=== PATIENT | male | born 1960 | race Caucasian/White ===

== ENCOUNTER 2019-09-06 15:40 | Emergency (ER) | payer MEDICAID, SELFPAY | END 2019-09-06 22:40 | disposition still patient (30) | LOC: ER 11-24 13:20 | PROVIDERS: Emergency Provider Emergency Medicine; Family Provider Registered Nurse | DX: M54.5 Low back pain (principal) ==

== ENCOUNTER 2019-09-06 15:40 | Observation (INO) | payer MEDICAID, SELFPAY ==
[2019-09-06] VITALS (10 sets, daily range): BP systolic 129–162; BP diastolic 74–82; PULSE 70–76; RESP 16–20; TEMP 36.4; O2SAT 95–98; BMI 27.6
--- NOTE | 2019-09-06 15:46 | XR_ITS ---
WS: [id number] Portable AP upright chest, 09/06/2019 09/06/2019 Clinical Data: cough/congestion Comparison: Portable chest, 06/29/2019. Findings: No nodules, masses or effusions are seen. The heart is normal. The pulmonary vascularity is not increased. No pneumonia or pneumothorax is seen. The 2-lead cardiac pacemaker remains in good po sition. XR/XR chest 1V portable [id number] Impression: No acute cardiopulmonary disease is seen.
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
--- NOTE | 2019-09-06 15:47 | ECG_ITS ---
Measurements Intervals [place] Rate: 73 P: 124 ND: 221 QRS: -47 QRSD: 116 T: 5 QT: 381 QTc: 422 ELECTRONIC ATRIAL PACEMAKER LEFT ANTERIOR FASCICULAR BLOCK [QRS AXIS <= -45, QR IN I, RS IN II] Compared to ECG 06/29/2019 19:32:34 No significant changes Electronically Signed On 09-06-2019 17:49:57 FLORICULTURE PROFESSOR by Yahaira Kulkarni M.D. [id number] f
[2019-09-06 16:23] LABS: Basophils # 0.1 10^3/uL (0.0-0.1); Basophils % 1.5 %; Eosinophils # 0.2 10^3/uL (0.0-0.8); Eosinophils % 3.1 %; Hematocrit 43.6 % (42.0-52.0); Hemoglobin 14.4 g/dL (11.7-16.6); Lymphocytes # 2.1 10^3/uL (0.8-4.8); Lymphocytes % 30.7 %; Mean Corpuscular Hemoglobin 30.4 pg (28.0-34.0); Mean Corpuscular Volume 92.2 fL (80-94); Mean Platelet Volume 11.7 fL (7.4-10.4); Monocytes # 0.6 10^3/uL (0.2-0.9); Monocytes % 8.9 %; Neutrophils # 3.8 10^3/uL (1.8-7.7); Neutrophils % 55.7 %; Nucleated Red Blood Cells % 0 %; Platelet Count 112 10^3/cmm (130-400); Red Blood Count 4.73 10^6/uL (4.1-5.3); Red Cell Distribution Width 12.3 % (12.1-15.1); White Blood Count 6.7 10^3/uL (4.0-10.0)
[2019-09-06] MEDS: nitroglycerin 0.4 mg sublingual Tablet SUBLINGUAL (16:35)
[2019-09-06 16:37] LABS: Alanine Aminotransferase 57 U/L (0-41); Albumin Level 4.3 g/dL (3.5-5.2); Alkaline Phosphatase 178 IU/L (40-130); Aspartate Amino Transferase 65 U/L (0-40); Blood Urea Nitrogen 13 mg/dL (6-20); Carbon Dioxide 21 mmol/L (22-29); Chloride 103 mmol/L (98-107); Globulin 4.5 g/dL (1.3-4.6); Glomerular Filtration Rate 99.6 mL/min (90-130); Glucose 86 mg/dL (74-109); Sodium 136 mmol/L (136-145); Total Bilirubin 0.9 mg/dL (0.15-1.2); Total Protein 8.8 g/dL (6.6-8.7)
[2019-09-06 16:42] LABS: Troponin(5th) Baseline 6 ng/mL (0-15)
[2019-09-06] MEDS: morphine 4 mg/mL SDV 1 mL IVP ×2 (16:42→18:35)
--- NOTE | 2019-09-06 17:47 | ECG_ITS ---
Measurements Intervals [place] Rate: 72 P: 109 OK: 223 QRS: -48 QRSD: 106 T: -12 QT: 379 QTc: 416 ELECTRONIC ATRIAL PACEMAKER LEFT ANTERIOR FASCICULAR BLOCK [QRS AXIS <= -45, QR IN I, RS IN II] Compared to ECG 06/29/2019 19:32:34 No significant changes Electronically Signed On 09-06-2019 17:51:50 CAN VACUUM TESTER by Yahaira Kulkarni M.D. [email or web address] f
[2019-09-06 18:35] LABS: Troponin 5 2HR 7.19 ng/mL (0-15)
[2019-09-06] MEDS: nitroglycerin 1 gm/inch oint Pkt 1 INCH TOPICAL (18:36)
[2019-09-06 18:37] LABS: Troponin 5 2HR Delta 1.19 ABS# (0-10)
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
--- NOTE | 2019-09-06 21:47 | ECG_ITS ---
Measurements Intervals [place] Rate: 77 P: 110 WV: 206 QRS: -49 QRSD: 102 T: -5 QT: 368 QTc: 418 ELECTRONIC ATRIAL PACEMAKER LEFT ANTERIOR FASCICULAR BLOCK [QRS AXIS <= -45, QR IN I, RS IN II] POSSIBLE ANTERIOR MYOCARDIAL INFARCTION , OF INDETERMINATE AGE [30 ms Q WAVE IN V3/V4, OR R < 0.2 mV IN V4] Compared to ECG 09/06/2019 17:25:10 Myocardial infarct finding now present Electronically Signed On 09-07-2019 19:22:44 DIGITAL CONTENT MARKETING MANAGER by Ziyad Siegel M.D. [id number]
[2019-09-06 22:31] LABS: Troponin 5 6HR 7.78 ng/L (0-15)
[2019-09-06] MEDS: morphine 4 mg/mL SDV 1 mL 2 MG IV (22:46)
[2019-09-06 22:51] LABS: Troponin 5 6HR Delta 1.78 ng/L (0-12)
--- NOTE | 2019-09-06 23:00 | PC.NURSE ---
PATIENT REFUSED LOVENOX INJECTION, TEACHING PROVIDED TO PATIENT REGARDING THE IMPORTANCE OF INJECTION, PATIENT REFUSES POST TEACHING.
--- NOTE | 2019-09-06 23:43 | PC.NURSE ---
NOTIFIED HOSPITALIST REGARDING MEDICATIONS RECONCILED,
[2019-09-07] VITALS (12 sets, daily range): BP systolic 119–144; BP diastolic 60–82; PULSE 70–83; RESP 12–35; TEMP 36.6–36.9; O2SAT 97–98
[2019-09-07 00:03] LABS: Influenza A by IFA Negative (Negative); Influenza B by IFA Negative (Negative)
[2019-09-07] MEDS: ondansetron 2 mg/ML SDV 2 mL 4 MG IVP (01:22)
[2019-09-07 03:16] LABS: Nucleated Red Blood Cells % 0 %; Platelet Count 100 10^3/cmm (130-400)
[2019-09-07 03:19] LABS: Blood Urea Nitrogen 15 mg/dL (6-20); Calcium 9.4 mg/Dl (8.6-10.0); Carbon Dioxide 20 mmol/L (22-29); Chloride 104 mmol/L (98-107); Glucose 127 mg/dL (74-109); Sodium 136 mmol/L (136-145)
[2019-09-07 03:23] LABS: Basophils # 0.1 10^3/uL (0.0-0.1); Basophils % 1.3 %; Eosinophils # 0.3 10^3/uL (0.0-0.8); Hematocrit 38.5 % (42.0-52.0); Lymphocytes # 1.9 10^3/uL (0.8-4.8); Lymphocytes % 30.5 %; Mean Corpuscular HGB Conc 33.8 g/dL (30.0-36.0); Mean Corpuscular Hemoglobin 30.6 pg (28.0-34.0); Mean Corpuscular Volume 90.6 fL (80-94); Mean Platelet Volume 11.7 fL (7.4-10.4); Monocytes # 0.7 10^3/uL (0.2-0.9); Monocytes % 10.6 %; Neutrophils # 3.4 10^3/uL (1.8-7.7); Neutrophils % 53.4 %; Red Blood Count 4.25 10^6/uL (4.1-5.3); Red Cell Distribution Width 12.2 % (12.1-15.1); White Blood Count 6.3 10^3/uL (4.0-10.0)
[2019-09-07] MEDS: morphine 4 mg/mL SDV 1 mL 2 MG IV ×4 (03:40→21:37)
--- NOTE | 2019-09-07 06:58 | ECG_ITS ---
NAME OF STUDY: LEXISCAN SESTAMIBI STRESS TEST INDICATION: Chest Pain, LEXISCAN STRESS TEST ORDERING PHYSICIAN: Baron CLINICAL INFORMATION: Chest pain INTERPRETATION: 1. The patient was brought to the laboratory where Lexiscan was infused over 20 seconds. The resting blood pressure was 131/76. Maximum blood pressure was 131/76. The resting heart rate was 71 beats per minute. The maximum heart rate is 82 beats per minute. 2. The baseline electrocardiogram reveals sinus rhythm with a left axis deviation and nonspecific ST and T-wave changes. Unusual R-wave progression. 3. With Lexiscan infusion, there were no ST segment changes to suggest ischemia. 4. The patient experienced no symptoms or arrhythmias during the examination. CONCLUSION: 1. Unremarkable Lexiscan infusion. 2. Nuclear imaging to follow. Electronically Signed On 09-07-2019 9:14:11 SUMMER ASSOCIATE by Elvin Draper M.D. [id number]
--- NOTE | 2019-09-07 08:00 | PC.NURSE ---
pt taken via wheelchair to [facility].
[2019-09-07] MEDS: regadenoson 0.4 Mg/5 ml Syringe IVP (08:29)
--- NOTE | 2019-09-07 09:00 | PC.NURSE ---
pt returned to room from stress test via wheelchair. pt hooked up to monitors, call light wtihin reach, and table in reach. will continue to monitor.
[2019-09-07 09:16] LABS: Thyroid Stimulating Hormone 1.65 uIU/mL (0.27-4.20)
--- NOTE | 2019-09-07 09:30 | PC.NURSE ---
pt taken via wheelchair to 2nd part of stress test.
--- NOTE | 2019-09-07 10:04 | PC.NURSE ---
pt back from stress test, hooked up to monitor. call light within reach, table within reach. will continue to monitor.
[2019-09-07] MEDS: apixaban 5 mg Tablet PO (10:09)
[2019-09-07] MEDS: metoprolol tartrate 50 mg Tablet PO ×2 (10:09→17:35)
[2019-09-07] MEDS: prednisoLONE 1% Op Susp 5 mL Btl 1 DROP EYE-LEFT ×3 (10:09→21:30)
[2019-09-07] MEDS: ofloxacin 0.3% Op Soln 5 mL Btl 1 DROP EYE-LEFT ×3 (10:10→21:29)
--- NOTE | 2019-09-07 13:43 | PC.NURSE ---
pt off [place] walking around. pt educated on cardiac monitoring needing to be constant. pt verbalized an understanding and would let staff know next time he wanted to take a walk so he could be placed on portable monitor.
--- NOTE | 2019-09-07 13:52 | P.PN_ITS ---
Subjective Subjective: Interval history: Patient awake in the wheelchair at time of exam this morning. He reported some occasional neck pain at that time but denied any shortness of breath. Vitals/I&O/Wt Last Vital Signs Temp 98.4 F 09/07/19 11:34 Pulse 70 09/07/19 11:34 Resp 17 09/07/19 11:34 BP 137/78 09/07/19 11:34 Pulse Ox 98 09/07/19 11:34 09/06/19 09/07/19 09/07/19 22:59 06:59 14:59 Intake Total 720 / 720 Balance 720 / 720 Weight last 48 hrs Weight 40.642 kg Weight 61.462 kg Weight 79.832 kg Physical Exam Const: COMMON NORMALS: oriented x3 and alert GENERAL APPEARANCE: cooperative ORIENTATION/CONSCIOUSNESS: Yes awake, Yes oriented to person, Yes oriented to place and Yes oriented to time HENMT: COMMON NORMALS: normocephalic HEAD & SCALP: normocephalic Eye: COMMON NORMALS: PERRL PUPIL: Yes PERRL Neck/C-Spine: COMMON NORMALS: supple GENERAL: Yes normal visual inspection Resp: COMMON NORMALS: normal respiratory effort and clear to auscultation bilaterally EFFORT & INSPECTION: Yes able to speak in complete sentences AUSCULTATION: clear to auscultation bilaterally, no rhonchi and no wheezes Cardio: COMMON NORMALS: regular rate, regular rhythm and no murmurs RATE: regular rate RHYTHM: regular rhythm GI: COMMON NORMALS: non-tender INSPECTION: No abdominal distension Extremity: COMMON NORMALS: no clubbing, cyanosis or edema and no calf tenderness Neuro: COMMON NORMALS: oriented x3, CN's II-XII intact bilaterally, moves all extremities and no focal motor deficits SENSORIUM/ORIENTATION: Yes alert, Yes oriented to person, Yes oriented to place and Yes oriented to time SPEECH: speech normal Psych: COMMON NORMALS: mental status grossly normal and cooperative Skin: COMMON NORMALS: no rashes or lesions noted GENERAL SKIN EXAM: no rashes or lesions noted A&P Assessment and plan (1) Chest pain: Stress test ordered for further evaluation due to patient's presentation with chest pain from cardiology clinic and risk factors for coronary artery disease Positive stress test, discussed with patient's leader writer, Dr. Siegel, consultation placed. Holding Eliquis and plan for possible cardiac cath tomorrow Status: Acute Code(s): R07.9 - Chest pain, unspecified (2) Tobacco dependency: Strongly encourage cessation Status: Acute Code(s): F17.200 - Nicotine dependence, unspecified, uncomplicated (3) Chronic obstructive pulmonary disease: Without acute exacerbation Status: Acute Code(s): J44.9 - Chronic obstructive pulmonary disease, unspecified (4) A-fib: Currently in paced rhythm Eliquis 5 mg twice daily at home, holding for cardiac cath tomorrow Continue home metoprolol 12.5 mg twice daily Status: Acute Code(s): I48.91 - Unspecified atrial fibrillation (5) GERD (gastroesophageal reflux disease): Continue Protonix 40 mg daily Status: Acute Code(s): K21.9 - Gastro-esophageal reflux disease without esophagitis (6) Liver lesion: Pending further work-up. Will need continued outpatient oncology follow- up Status: Acute Code(s): K76.9 - Liver disease, unspecified (7) Depression: Stable Status: Acute Code(s): F32.9 - Major depressive disorder, single episode, unspecified (8) Chronic pain: Appears to be on chronic narcotics Status: Acute Code(s): G89.29 - Other chronic pain (9) Hyperlipidemia: Status: Acute Code(s): E78.5 - Hyperlipidemia, unspecified (10) Hep C w/o coma, chronic: Status: Acute Code(s): B18.2 - Chronic viral hepatitis C (11) Hypertension: Blood pressure appears to be controlled in the ER Status: Acute Code(s): I10 - Essential (primary) hypertension Attestations Medical Necessity Statement*: Patient requires continued hospitalization due to chest pain with abnormal stress test suggestive of ischemia. Coding Level of Care Code Acute Rod Pointer for [facility] Fwd Diagnoses Chest pain R07.9 Tobacco dependency F17.200 Chronic obstructive pulmonary disease J44.9 A-fib I48.91 GERD (gastroesophageal reflux disease) K21.9 Liver lesion K76.9 Depression F32.9 Chronic pain G89.29 Hyperlipidemia E78.5 Hep C w/o coma, chronic B18.2 Hypertension I10
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
--- NOTE | 2019-09-07 19:33 | PC.NURSE ---
ROUNDING DONE WITH DR ALLEN THIS EVENING INFORMED PATIENT HE WAS READY FOR DISCHARGE. PATIENT IS UNABLE TO OBTAIN A RIDE OR DRIVE SELF AFTER DARK. DR ALLEN INFORMED PATIENT THAT HE WOULD BE DISCHARGED TO HOME IN THE AM. PATIENT IS AGREEABLE AT THIS TIME.
--- NOTE | 2019-09-07 19:55 | PC.NURSE ---
Lying supine in bed watching television and talking on phone. States, Dr. Siegel was going to send me home but I don't have a ride........I'll be going home in the morning...I'd really like to take this monitor off. This nurse explained to patient that while he is a patient on our floor that we would appreciate it if he wore the monitor over night and that staff would also like to know where he might be walking too. Patient voices understanding. Up to shower. Will monitor.
--- NOTE | 2019-09-07 19:57 | NMCV_ITS ---
NM MIBI/MIBI Stress/Rest [id number] Say Cardenas Age: 59 Gender: M : 1960 Exam Date: 09/07/2019 06:38 Ordering Phys: Harmeet Colunga MD Technologist: DOMENIC Moreno Exam Location: [facility] Indications: Chest Pain STRESS TEST Please see separate stress test report in [facility] for full findings IMAGE PROTOCOL Lexiscan Radiopharmaceutical Dose (mCi) Administration Site Administered by Rest: Tc-99m 10.2 IV DOMENIC Moreno Sestamibi Stress:Tc-99m 32.1 IV DOMENIC Moreno Sestamibi Rest: 07-Sep-2019 60 Discovery 630 Stress: 07-Sep-2019 60 Discovery 630 0.4mg Lexiscan. Images obtained in supine and prone position. SPECT RESULTS Technical Quality: Good Raw Data Analysis: Normal Image Corrections: No attenuation or motion correction applied Summed Stress Score: 0 Summed Rest Score: 0 Summed Difference Score: 0 PERFUSION FINDINGS Medium-size area of moderate reversibility noted in basal to mid inferior wall suggestive of ischemia in RCA territory. FUNCTIONAL RESULTS (calculated via Gated SPECT) Stress Image LV EF (%): 71 Stress EDV (mL):103 TID: 1.03 Stress ESV (mL):30 Rest Image LV EF (%): 71 FUNCTIONAL FINDINGS: There is normal left ventricular systolic function. IMPRESSIONS Medium-size area of moderate ischemia noted in basal to mid inferior wall suggestive of possible lesion in RCA territory. EKG segment will be documented separately. This study is positive for ischemia. Ziyad Siegel MD (Electronically Signed) Final Date: 07 September 2019 12:38 S
[2019-09-07] MEDS: sertraline 50 mg Tablet PO (21:29)
[2019-09-08 02:05] VITALS: RESP 16
[2019-09-08] MEDS: morphine 4 mg/mL SDV 1 mL 2 MG IV (02:05)
[2019-09-08 04:00] VITALS: BP 140/80; PULSE 78; RESP 18; TEMP 36.7
--- NOTE | 2019-09-08 04:30 | PC.NURSE ---
This nurse was informed by lab personnel that patient was refusing to have labs drawn at this time due to patient going home this morning. Informed lab personnel that patient had the right to refuse and that I would document as such. Lab personnel voices understanding. Will monitor.
[2019-09-08 08:00] VITALS: BP 125/77; PULSE 69; RESP 20; TEMP 36.6; O2SAT 97
--- NOTE | 2019-09-08 08:13 | P.DS_ITS ---
Discharge Providers Date of Admission: 09/06/19 21:15 Date of Discharge: 09/08/19 Attending Provider at Admission: Harmeet Colunga MD Attending Provider at Discharge: Magda Barth MD Primary Care Provider: Ziyad Siegel Diagnoses at Discharge Discharge Diagnosis (1) Chest pain: Status: Acute Problem details: Resolved, atypical chest pain. Had abnormal stress test which was reported to be false negative by cardiology. Patient had recent cardiac cath which showed normal coronary arteries just a few months ago, cleared for discharge by cardiology. (2) Tobacco dependency: Status: Acute Problem details: Strongly encourage cessation (3) Chronic obstructive pulmonary disease: Status: Acute Problem details: Without acute exacerbation (4) A-fib: Status: Acute Problem details: Continue on Eliquis 5 mg twice daily, continue metoprolol 12.5 mg twice daily (5) GERD (gastroesophageal reflux disease): Status: Acute Problem details: Continue Protonix 40 mg daily (6) Liver lesion: Status: Acute Problem details: Continue with outpatient follow-up as previously scheduled (7) Depression: Status: Acute Problem details: Continue on sertraline daily (8) Chronic pain: Status: Acute (9) Hyperlipidemia: Status: Acute (10) Hep C w/o coma, chronic: Status: Acute (11) Hypertension: Status: Acute Problem details: Continue lisinopril 40 mg daily along with metoprolol Reason for Visit Reason for Visit: Reason For Visit: chest pain Hospital Course Hospital Course: Patient was seen and evaluated in the emergency department after being sent from cardiology office due to concern for chest pain. Patient was admitted for serial troponin and EKG and further cardiac evaluation. Patient had negative EKG and troponin and was kept n.p.o. for stress test. Stress test showed some changes with concern for positive result in the territory of the RCA. Cardiology was consulted, Dr. Siegel, patient was cleared for discharge due to recently having normal cardiac catheterization with normal coronary arteries. On date of discharge patient denied any chest pain he did note some neck pain but denied any other concerns. Discussed with him plan for discharge and he denied any concerns Discharge Summary: Hospital course as above. On date of discharge patient denied any chest pain, did note some musculoskeletal pain in his neck. Discussed with him plan for discharge to home and he verbalized understanding and agreed with plan. Physical Exam Const: COMMON NORMALS: oriented x3 and alert GENERAL APPEARANCE: cooperative ORIENTATION/CONSCIOUSNESS: Yes awake, Yes oriented to person, Yes oriented to place and Yes oriented to time HENMT: COMMON NORMALS: normocephalic HEAD & SCALP: normocephalic Eye: COMMON NORMALS: PERRL PUPIL: Yes PERRL Neck/C-Spine: COMMON NORMALS: supple GENERAL: Yes normal visual inspection OTHER: Tenderness to palpation in the cervical paraspinal muscles Resp: COMMON NORMALS: normal respiratory effort and clear to auscultation bilaterally EFFORT & INSPECTION: Yes able to speak in complete sentences AUSCULTATION: clear to auscultation bilaterally, no rhonchi and no wheezes Cardio: COMMON NORMALS: regular rate, regular rhythm and no murmurs RATE: regular rate RHYTHM: regular rhythm GI: COMMON NORMALS: non-tender INSPECTION: No abdominal distension AUSCULTATION: Yes normoactive bowel sounds Extremity: COMMON NORMALS: no clubbing, cyanosis or edema and no calf tenderness Neuro: COMMON NORMALS: oriented x3, CN's II-XII intact bilaterally, moves all extremities and no focal motor deficits SENSORIUM/ORIENTATION: Yes alert, Yes oriented to person, Yes oriented to place and Yes oriented to time SPEECH: speech normal Psych: COMMON NORMALS: mental status grossly normal and cooperative Skin: COMMON NORMALS: no rashes or lesions noted GENERAL SKIN EXAM: no rashes or lesions noted Discharge Data Data Completed and Pending: Completed Studies During Hospitalization Category Date Time Status Sestamibi Stress Test Request Routi ne Exams 09/07/19 06:58 Completed XR chest 1V ruy ble [id number] Urgent Exams 09/06/19 15:46 Completed NM elyse perf SPECT r&s* [id number] Routin e Nuc Med 09/07/19 19:57 Completed Pending at discharge Category Date Time Status Sestamibi Stress Test Request Routi ne Exams 09/06/19 19:57 Stop Req Complete Blood Co unt w/Auto AM LABS Lab 09/09/19 04:00 Ordered Labs from last 24 hours 09/06/19 21:55 TSH 1.65 Vitals: Last Vital Signs Temp 97.9 F 09/08/19 08:00 Pulse 69 09/08/19 08:00 Resp 20 H 09/08/19 08:00 BP 125/77 09/08/19 08:00 Pulse Ox 97 09/08/19 08:00 Discharge Plan Discharge Patient Disposition: Home, Self-Care Condition: Stable Prescriptions: New tizanidine 4 mg capsule 4 mg PO Q8H PRN (Reason: muscle spasticity) 2 Days Qty: 6 RF: 0 Continued metoprolol tartrate 25 mg tablet 12.5 mg PO BID RF: 0 sertraline 50 mg tablet 50 mg PO Q24H RF: 0 nitroglycerin [Nitrostat] 0.4 mg tablet, sublingual 0.4 mg SUBLINGUAL Q5M PRN (Reason: Chest Pain) RF: 0 aspirin [Aspirin Low Dose] 81 mg tablet,delayed release (DR/EC) 81 mg PO ONCE RF: 0 pantoprazole [Protonix] 40 mg tablet,delayed release (DR/EC) 40 mg PO ONCE RF: 0 lisinopril 40 mg tablet 40 mg PO ONCE RF: 0 Eliquis 5 mg tablet 5 mg PO BID RF: 0 prednisolone acetate 1 % drops,suspension 1 drop ophthalmic (eye) QID RF: 0 ofloxacin 0.3 % drops 1 drop ophthalmic (eye) QID RF: 0 alprazolam 0.5 mg tablet 0.5 mg PO TID RF: 0 Discharge Orders: Discharge Order (Routine); Ordered 09/08/19 Ordered By: Magda Barth Referrals: Ziyad Siegel MD [Primary Care Provider] - Thea Mckeon FNP [Family Provider] - Discharge Diet: Cardiac Discharge Activity: Increase activity as tolerated Activity Restrictions/Additional Instructions: Follow-up with your primary care provider in 3 to 5 days Follow-up with cardiology, Dr. Siegel as directed Follow-up with oncology as previously scheduled for further evaluation of liver lesion Discharge Attestations Time Spent in Discharge Care*: greater than 30 min Quality Metrics Clinical Quality Measures During this hospital stay, did patient experience: None Coding Level of Care Code Acute Events Director for [facility] Fwd Diagnoses Chest pain R07.9 Tobacco dependency F17.200 Chronic obstructive pulmonary disease J44.9 A-fib I48.91 GERD (gastroesophageal reflux disease) K21.9 Liver lesion K76.9 Depression F32.9 Chronic pain G89.29 Hyperlipidemia E78.5 Hep C w/o coma, chronic B18.2 Hypertension I10
[2019-09-08] MEDS: metoprolol tartrate 50 mg Tablet PO (08:42)
[2019-09-08] MEDS: prednisoLONE 1% Op Susp 5 mL Btl 1 DROP EYE-LEFT (08:43)
[2019-09-08] MEDS: ofloxacin 0.3% Op Soln 5 mL Btl 1 DROP EYE-LEFT (08:43)
[2019-09-08 09:16] VITALS: BP 125/77; PULSE 71; RESP 20; TEMP 36.6; O2SAT 97
== END 2019-09-08 09:47 | disposition home or self-care (01) ==
LOC: ER 19:54 → CSU 21:16
PROVIDERS: Physician Assistant; Admitting Provider Internal Medicine; Emergency Provider Emergency Medicine; Family Provider Registered Nurse; PCP Internal Medicine Cardiovascular Disease; Visit Provider Family Medicine
DX: R07.89 Other chest pain (principal); I10 Essential (primary) hypertension; F17.210 Nicotine dependence, cigarettes, uncomplicated; J44.9 Chronic obstructive pulmonary disease, unspecified; I48.91 Unspecified atrial fibrillation; K21.9 Gastro-esophageal reflux disease without esophagitis; K76.9 Liver disease, unspecified; F32.9 Major depressive disorder, single episode, unspecified; G89.29 Other chronic pain; E78.5 Hyperlipidemia, unspecified; B18.2 Chronic viral hepatitis C; Z79.82 Long term (current) use of aspirin; Z79.52 Long term (current) use of systemic steroids; Z82.49 Family history of ischemic heart disease and other diseases of the circulatory system; Z82.3 Family history of stroke; Z95.0 Presence of cardiac pacemaker
CPT/HCPCS: 36415; 71045; 78452; 80048; 80053; 84443; 84484; 85025; 87804; 93005; 93017; 96374; 96376; 99283; 99285; A9500; G0378; J2270; J2405; J2785

== ENCOUNTER 2019-09-21 13:00 | Outpatient (CLI) | payer MEDICAID, SELFPAY ==
--- NOTE | 2019-10-08 12:57 | ONC FU_ITS ---
Dr. Armas Patient Follow-Up Note Patient: Say Cardenas Unit #: [id number]: 1960 Dicatated By: Fredi Armas M.D.Date of Visit:Sep 21, 2019 Onc Med Follow-up/Prog Note Chief Complaint: Liver mass. History of Present Illness: This is a 59 year-old man with CT evidence of a left lateral lobe hepatic mass suspicious for early hepatocellular carcinoma or a solitary metastatic lesion. 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 He has had chronic pancreatitis. On 05/02/2019 he was admitted to the hospital after presenting to the emergency room with abdominal pain and vomiting. His initial CT abdomen/pelvis showed multiple dilated loops of proximal small bowel with scattered air-fluid levels, concerning for early small bowel obstruction. There were findings of cirrhosis and mild splenomegaly. His symptoms improved with conservative management. His repeat CT abdomen/pelvis on 05/06/2019 showed resolution of the small bowel distention. The pancreas appeared normal. That study, however, did show development of a left hepatic lobe lateral segment space-occupying lesion which was new from a prior study in October 2017. It measured approximately 1.5 cm. His laboratory studies during that time included an AFP level which was elevated at 26.9 ng/mL. His serum lipase was mildly elevated at 131/60 U/L. I had seen him initially on 05/18/2019. He was not able to have the hepatic lesion evaluated by MRI due to his having a pacemaker. We discussed the possibility of referral to a tertiary facility for further evaluation versus continuing follow-up here with close observation. Given his multiple underlying medical illnesses, he opted for the latter. His repeat CT abdomen/pelvis on 06/29/2019 showed hypodense mass in the lateral segment of the left lobe of the liver measuring 2.3 x 1.7 x 2.8 cm. It did not appear significantly changed from the prior CT scan. His other medical illnesses include hypertension, hyperlipidemia, GERD, and COPD. He has a history of smoking 1 pack of cigarettes daily for 40 years. He has a history of heavy alcohol use. He had most recently quit again in April 2019. He is seen for a follow-up visit. He was recently in the hospital again, this time for chest pain. His cardiac evaluation was apparently unrevealing. He has not had any further CT scans since the study in June. He continues to complain of pain across his lower chest and upper abdomen. The pain is worse when he is lying down. He says he does not have much energy and that he is mostly just laying around . His ECOG score is 3. His appetite is just so-so. He has gained weight. He does not have fever or night sweats. He has shortness of breath. He complains of having constant cough. It is nonproductive. He has had no hemoptysis. He has not been having nausea or acid reflux symptoms. His bowels lately have been okay. He has frequent urination. He complains that his hands hurt a lot. He also has back pain. He is having headache constantly. He has numbness in his hands. Medications: ALPRAZolam 1 (0.5 mg) Tablet Oral t.i.d. PRN, amLODIPine Besylate 1 (5 mg) Tablet Oral daily, Aspirin 1 (81 mg) Tablet Oral daily, Eliquis 1 Tablet (of 5 mg) Oral b.i.d., Lisinopril 1 (40 mg) Tablet Oral daily, Metoprolol Tartrate 0.5 (25 mg) Tablet Oral b.i.d., Nitroglycerin 1 (0.4 mg) Tablet, sublingual Sublingual PRN, Ofloxacin 1 drop(s) (of 0.3 %) Solution Ophthalmic 6x/d, prednisoLONE Acetate 1 drop(s) (of 1 %) Suspension Ophthalmic four times a day, Protonix 1 (40 mg) Tablet, enteric coated Oral daily, Sertraline HCl 1 (50 mg) Tablet Oral daily, tiZANidine HCl 1 Tablet (of 4 mg) Oral q for 8 hours PRN Allergies: Relistor Review of Systems: Constitutional - He has very poor energy. He has mostly just been laying around . His appetite is fair and weight is so-so. He has gained weight. He has no fever or night sweats. ECOG score is 3, ENMT - He has sinus congestion/drainage. No mouth sores. No sore throat or difficulty swallowing, Hematologic/Lymphatic - He bruises easily, Respiratory - He has shortness of breath. He has had constant cough. It is nonproductive. No pleuritic pain or hemoptysis, Cardiovascular - He has been having pain across his lower chest and upper abdomen. No palpitations, Gastrointestinal - No nausea or vomiting. No heartburn or acid reflux. No diarrhea or constipation. No blood in the stool or black stools, Genitourinary (M) - No dysuria or hematuria. He has urinary frequency. No urgency or incontinence, Musculoskeletal - His hands hurt a lot. He also has back pain, Integumentary - No skin complications, Neurologic - He has constant headaches. No dizziness. He has numbness in his hands, Psychiatric - He has anxieyt and depression. He does not sleep well at night. Vital Signs: Performed on Sep 21, 2019 13:18 Height - 67.00 in Weight - 177 lbs (HIGH) BSA - 1.92 sq.m BMI - 27.72 Temperature - 98.6 F Pulse - 75 /min Respiration - 16 /min BP - 138/86 mm(hg) O2 Sat - 99 % Pain - 6 Physical Examination: Constitutional - He appears generally weak and chronically ill, Eyes - Sclerae nonicteric. Conjunctivae clear, ENMT - There is a benign appearing polypoid lesion in the right buccal mucosa just inside the mouth. There are no other lesions noted in the oral cavity, Hematologic/Lymphatic - No cervical, clavicular, or axillary adenopathy, Respiratory - Lungs are clear with some decrease in air movement bilaterally, Cardiovascular - Heart rhythm is regular. There is a II/ systolic murmur. There is no gallop or rub noted, Abdomen - Mildly distended. There is no significant abdominal tenderness. Liver is not enlarged. Spleen is not palpable. There is no abdominal mass or ascites noted and there is no inguinal adenopathy, Extremities - No edema, Neurologic - No focal neurologic deficits noted. Lab/Imaging: Impression: 1. Patient with CT evidence of left lateral hepatic lobe lesion suspicious for early hepatocellular carcinoma or a solitary metastatic lesion. 2. He was having multiple GI complaints including abdominal pain, nausea, and diarrhea, all of which were clearly unrelated. 3. He has known liver cirrhosis, probably alcohol related. 4. He was treated for hepatitis C in 2017. 5. He has history of chronic pancreatitis. His other medical illnesses include: 6. Hypertension. 7. GERD. 8. COPD. 9. 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 10. 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 He has been followed on close observation for the hepatic lesion, as he has not been able to be evaluated with MRI due to the pacemaker. During follow-up he has continued to have significant pain. The specific underlying cause for that is uncertain. As previously noted, it is clearly not related to the hepatic lesion. The results of his current laboratory studies are still pending. Plan: He will be scheduled for a repeat CT abdomen/pelvis, which will be 3- month interval study. He will then have further evaluation as indicated. Signed By: Fredi Armas M.D. <<Signature on File>>
== END 2019-09-21 13:01 | disposition home or self-care (01) ==
LOC: STFRANCIS 09-22 08:50
PROVIDERS: Family Provider Registered Nurse; PCP Internal Medicine Cardiovascular Disease; Visit Provider Internal Medicine Medical Oncology
DX: R93.2 Abnormal findings on diagnostic imaging of liver and biliary tract (principal); K76.9 Liver disease, unspecified; K70.30 Alcoholic cirrhosis of liver without ascites; K86.0 Alcohol-induced chronic pancreatitis; I10 Essential (primary) hypertension; E78.5 Hyperlipidemia, unspecified; K21.9 Gastro-esophageal reflux disease without esophagitis; J44.9 Chronic obstructive pulmonary disease, unspecified; F17.210 Nicotine dependence, cigarettes, uncomplicated; F10.21 Alcohol dependence, in remission; Z79.82 Long term (current) use of aspirin; Z95.0 Presence of cardiac pacemaker; Z86.19 Personal history of other infectious and parasitic diseases
CPT/HCPCS: 99214

== ENCOUNTER 2019-09-28 10:58 | Outpatient (CLI) | payer MEDICAID, SELFPAY ==
--- NOTE | 2019-09-28 11:02 | CT_ITS ---
WS: [id number] CT scan of the abdomen and pelvis with IV contrast. Additional two-dimensional coronal and sagittal r econstruction was performed. 09/28/2019 Clinical Data: HEPATIC MASS Comparison: CT abdomen and pelvis, 06/29/2019. DLP: 659.[address] scans at [facility] use at least one of these dose optimization techniques: automat ed exposure control; mA and/or kV adjustment per patient size (includes targeted exams where dose is matched to clinical indication); or iterative reconstruction. Findings: The lower lungs show no nodules, masses or effusions. The indeterminate lesion in the left lobe of th e liver measures approximately 1.64 x 2.62 x 3.41 cm and has not changed. It shows peripheral enhance ment and may represent an hemangioma or focal fat infiltration. It is less likely to represent a live r abscess, metastatic lesion or primary liver tumor. The remainder of the liver is unremarkable. The spleen, adrenal glands and pancreas are normal. The gallbladder is absent with clips in the gallblad todd fossa. The kidneys show equal bilateral contrast excretion with no cyst or masses. The abdominal aorta is normal in size. No appendicitis or diverticulitis is seen. Oral contrast is in the stomach, small bowel and colon, an d there is no bowel dilatation. No abscess, adenopathy, ascites, mass, obstruction or free air is see n. The bladder is unremarkable. The prostate is enlarged. There is a small fat-containing right ingui nal hernia. The bones of the lower thorax, lumbar spine, pelvis, and hips show minimal degenerative c hanges of the lower thoracic and lumbar vertebral bodies.. CT/CT abdomen pelvis w con* [id number] Impression: 1. Indeterminate lesion of left lobe of the liver. Unchanged 2. No acute intra-abdominal or pelvic abnormalities are seen.
[2019-09-28] MEDS: iohexol 300 mg/mL 50 mL Btl PO (12:07)
[2019-09-28] MEDS: iohexol 300 mg/mL 100 mL Btl IV (13:23)
== END 2019-09-28 10:59 | disposition home or self-care (01) ==
LOC: CT 10:59
PROVIDERS: Family Provider Registered Nurse; Visit Provider Internal Medicine Medical Oncology
DX: K76.9 Liver disease, unspecified (principal); R16.0 Hepatomegaly, not elsewhere classified
CPT/HCPCS: 74177

== ENCOUNTER → 2019-11-10 13:54 | Outpatient (BNVA) | payer MEDICAID, SELFPAY | PROVIDERS: Family Provider Registered Nurse; Visit Provider Registered Nurse | DX: K85.90 Acute pancreatitis without necrosis or infection, unspecified (principal) | CPT/HCPCS: 80053; 85025 ==

== ENCOUNTER 2020-01-18 11:38 | Outpatient (CLI) | payer MEDICAID, SELFPAY ==
--- NOTE | 2020-01-21 06:55 | ONC FU_ITS ---
Dr. Armas Patient Follow-Up Note Patient: Say Cardenas Unit #: [id number]: 1960 Dicatated By: Fredi Armas M.D.Date of Visit:January 18, 2020 Onc Med Follow-up/Prog Note Chief Complaint: Liver mass. History of Present Illness: This is a 59 year-old man with CT evidence of a left lateral lobe hepatic mass suspicious for early hepatocellular carcinoma or a solitary metastatic lesion. 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 He has had chronic pancreatitis. On 05/02/2019 he was admitted to the hospital after presenting to the emergency room with abdominal pain and vomiting. His initial CT abdomen/pelvis showed multiple dilated loops of proximal small bowel with scattered air-fluid levels, concerning for early small bowel obstruction. There were findings of cirrhosis and mild splenomegaly. His symptoms improved with conservative management. His repeat CT abdomen/pelvis on 05/06/2019 showed resolution of the small bowel distention. The pancreas appeared normal. That study, however, did show development of a left hepatic lobe lateral segment space-occupying lesion which was new from a prior study in October 2017. It measured approximately 1.5 cm. His laboratory studies during that time included an AFP level which was elevated at 26.9 ng/mL. His serum lipase was mildly elevated at 131/60 U/L. I had seen him initially on 05/18/2019. He was not able to have the hepatic lesion evaluated by MRI due to his having a pacemaker. We discussed the possibility of referral to a tertiary facility for further evaluation versus continuing follow-up here with close observation. Given his multiple underlying medical illnesses, he opted for the latter. His repeat CT abdomen/pelvis on 06/29/2019 showed hypodense mass in the lateral segment of the left lobe of the liver measuring 2.3 x 1.7 x 2.8 cm. It did not appear significantly changed from the prior CT scan. His other medical illnesses include hypertension, hyperlipidemia, GERD, and COPD. He has a history of smoking 1 pack of cigarettes daily for 40 years. He has a history of heavy alcohol use. He had most recently quit again in April 2019. INTERIM HISTORY: Repeat CT abdomen/pelvis on 09/28/2019 showed indeterminate lesion in the left lobe of the liver measuring 1.64 x 2.62 x 3.41 cm, unchanged from the previous study. It did appear to show peripheral enhancement, consistent with hemangioma or focal fat infiltration. Liver abscess, metastatic lesion, or primary liver tumor were felt to be less likely. There were no other acute findings and no other changes noted. He continued observation/symptomatic management. He is seen for a follow-up visit. He says he has been feeling better generally. He is still getting pain in his upper abdomen off and on. He has no other associated GI symptoms. He says his energy is not good. He is out of breath and wore out after 15 minutes of activity. He is doing just very light work. ECOG score is 2. He has normal appetite, and his weight is stable. He has no fever or night sweats. He has nonproductive cough. He is still smoking 1 pack of cigarettes daily. He does report having chest pain with more strenuous activity. Bowel and bladder function have been normal. He has pain in his lower back, which tends to be activity related. He also has been having pain and numbness in his right hand and arm. He has headache occasionally, and he sometimes has dizziness. He has no other focal neurologic symptoms. Medications: Aspirin 1 (81 mg) Tablet Oral daily, Eliquis 1 Tablet (of 5 mg) Oral b.i.d., Lisinopril 1 (40 mg) Tablet Oral daily, Metoprolol Tartrate 0.5 (25 mg) Tablet Oral b.i.d., Nitroglycerin 1 (0.4 mg) Tablet, sublingual Sublingual PRN, Ofloxacin 1 drop(s) (of 0.3 %) Solution Ophthalmic 6x/d, Protonix 1 (40 mg) Tablet, enteric coated Oral daily, Sertraline HCl 1 (50 mg) Tablet Oral daily, tiZANidine HCl 1 Tablet (of 4 mg) Oral q for 8 hours PRN Allergies: Relistor Review of Systems: Constitutional - His energy level is low. He is able to do a little bit of light work, but he tires easily. His appetite is good and weight is stable. No fever, chills, hot flashes, or night sweats. ECOG score is 2, ENMT - No sinus congestion/drainage. No mouth sores. No sore throat or difficulty swallowing, Hematologic/Lymphatic - No abnormal bruising or bleeding, Respiratory - He gets short of breath with activity. He has a chronic dry smokers cough. No pleuritic pain or hemoptysis, Cardiovascular - He has chest pain occasionally with more strenuous activity. No palpitations, Gastrointestinal - No nausea or vomiting. His heartburn is well controlled with Protonix. No diarrhea or constipation. No blood in the stool or black stools. He still has pain off and on in the upper abdomen, Genitourinary (M) - No dysuria or hematuria. No urinary frequency. No urgency or incontinence, Musculoskeletal - He has some arthritic pain in his right hand/wrist, Integumentary - No skin complications, Neurologic - No headache or dizziness. He has some numbness and tingling in his right hand, Psychiatric - He has anxiety, but he is currently not taking anything for it. No depression. No insomnia. Vital Signs: Performed on January 18, 2020 09:00 Height - 67.00 in Weight - 175 lbs (LOW) BSA - 1.91 sq.m BMI - 27.41 Temperature - 99.0 F (HIGH) Pulse - 76 /min Respiration - 18 /min BP - 140/80 mm(hg) O2 Sat - 98 % Pain - 4 Physical Examination: Constitutional - He does not appear acutely ill, Eyes - Sclerae nonicteric. Conjunctivae clear, ENMT - There is a benign appearing polypoid lesion in the right buccal mucosa just inside the mouth. There are no other lesions noted in the oral cavity, Hematologic/Lymphatic - No cervical, clavicular, or axillary adenopathy, Respiratory - Lungs are clear with some decrease in air movement bilaterally, Cardiovascular - Heart rhythm is regular. There is a II/ systolic murmur. There is no gallop or rub noted, Abdomen - Mildly distended and tympanic. There is mild tenderness in the left upper quadrant. Liver is not enlarged. Spleen is not palpable. There is no abdominal mass or ascites noted and there is no inguinal adenopathy, Extremities - No edema, Neurologic - No focal neurologic deficits noted. Lab/Imaging: Test performed on Sep 21, 2019 13:08 Glucose 158 mg/dL BUN 11 mg/dL Creatinine 0.77 mg/dL Cr Clearance (Est) 120.20 mL/min Sodium 137 mmol/L Potassium 3.9 mmol/L Chloride 103 mmol/L CO2 19 mmol/L Calcium 9.3 mg/dL Protein, Total 8.7 g/dL Albumin 4.0 g/dL Bilirubin, Total 0.7 mg/dL Alkaline Phosphatase 170 IU/L AST (SGOT) 61 IU/L ALT (SGPT) 48 IU/L WBC 7.0 10^9/L RBC 5.02 10^12/L HGB 15.4 g/dL HCT 44.8 % MCV 89.2 fl MCH 30.7 pg MCHC 34.4 g/dL RDW 12.8 % Platelet Count 87 10^9/L MPV 11.0 fL Neutrophils (Gran) 4.46 10^9/L Lymphocytes 1.87 10^9/L Monocytes 0.47 10^9/L Eosinophils 0.15 10^9/L Basophils 0.08 10^9/L Manual Lymphocytes 27 % Manual Monocytes 7 % Manual Eosinophils 2 % Manual Basophils 1 % AFP 25 ng/mL Impression: 1. Patient with CT evidence of left lateral hepatic lobe lesion, initially felt to be suspicious for early hepatocellular carcinoma or a solitary metastatic lesion. 2. He was having multiple GI complaints including abdominal pain, nausea, and diarrhea, all of which were clearly unrelated. 3. He has known liver cirrhosis, probably alcohol related. 4. He was treated for hepatitis C in 2017. 5. He has history of chronic pancreatitis. His other medical illnesses include: 6. Hypertension. 7. GERD. 8. COPD. 9. 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 10. 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 He has been followed on close observation for the hepatic lesion, as he was not able to be evaluated with MRI due to his pacemaker. During follow-up he continued to have abdominal pain, though a specific underlying cause for that was not determined. It was clearly not related to the hepatic lesion. As of his follow-up in September 2019, the lesion appeared stable by CT scan. Since then there has been some gradual improvement in his symptoms, though he continues to have some abdominal pain, and he also has very limited activity tolerance. Plan: He will be scheduled for a followup visit with repeat CT abdomen/pelvis in March, which will be 6- month interval study. Signed By: Fredi Armas M.D. <<Signature on File>>
== END 2020-01-18 11:39 | disposition home or self-care (01) ==
LOC: ONCMED 11:38
PROVIDERS: PCP Registered Nurse; Visit Provider Internal Medicine Medical Oncology
DX: R93.2 Abnormal findings on diagnostic imaging of liver and biliary tract (principal); K74.60 Unspecified cirrhosis of liver; R10.9 Unspecified abdominal pain; K21.9 Gastro-esophageal reflux disease without esophagitis; J44.9 Chronic obstructive pulmonary disease, unspecified; Z95.0 Presence of cardiac pacemaker; Z86.19 Personal history of other infectious and parasitic diseases; Z87.19 Personal history of other diseases of the digestive system; Z94.7 Corneal transplant status; Z87.891 Personal history of nicotine dependence; F10.21 Alcohol dependence, in remission
CPT/HCPCS: G0463

== ENCOUNTER 2020-03-15 11:49 | Outpatient (CLI) | payer MEDICAID, SELFPAY ==
--- NOTE | 2020-03-15 11:55 | CT_ITS ---
WS: [id number] CT scan of the abdomen and pelvis with IV contrast. Additional two-dimensional coronal and sagittal r econstruction was performed. 03/15/2020 Clinical Data: LIVER MASS Comparison: CT abdomen and pelvis, 09/28/2019 DLP: 1174.[address] scans at [facility] use at least one of these dose optimization techniques: automat ed exposure control; mA and/or kV adjustment per patient size (includes targeted exams where dose is matched to clinical indication); or iterative reconstruction. Findings: A mass in the left lobe of the liver has enlarged and now measures 3.46 x 4.04 cm x 4.91 cm. Again th e liver shows a slightly irregular surface and enlargement both of which can be seen with cirrhosis o f the liver. The lower lungs show no nodules, masses or effusions. Pacemaker wires are seen in the right ventricle . The spleen, adrenal glands and pancreas are normal. The gallbladder is absent with clips in the gall bladder fossa. The kidneys show equal bilateral contrast excretion with no cyst or masses. The abdominal aorta is normal in size. No appendicitis or diverticulitis is seen. There are sigmoid diverticula. No abscess, adenopathy, asc ites, mass, obstruction or free air is seen. The bladder is unremarkable. No inguinal hernia is seen. The bones of the lower thorax, lumbar spine, pelvis, and hips are normal. CT/CT abdomen pelvis w con* [id number] Impression: 1. Enlargement of the mass in the left lobe of the liver and further workup is recommended including liver MRI, or PET/CT. 2. No other changes of the abdomen and pelvis are seen compared to the previous study.
[2020-03-15] MEDS: iohexol 300 mg/mL 100 mL Btl IV (12:10)
== END 2020-03-15 11:50 | disposition home or self-care (01) ==
LOC: RADWPI 11:51
PROVIDERS: PCP Registered Nurse; Visit Provider Internal Medicine Medical Oncology
DX: R93.2 Abnormal findings on diagnostic imaging of liver and biliary tract (principal)
CPT/HCPCS: 74177; Q9967

== ENCOUNTER 2020-03-21 09:53 | Outpatient (CLI) | payer MEDICAID, SELFPAY ==
--- NOTE | 2020-03-22 07:19 | ONC FU_ITS ---
Dr. Armas Patient Follow-Up Note Patient: Say Cardenas Unit #: [id number]: [id number] Dicatated By: Fredi Armas M.D.Date of Visit:Mar 21, 2020 Onc Med Follow-up/Prog Note Chief Complaint: Liver mass. History of Present Illness: This is a 59 year-old man with CT evidence of a left lateral lobe hepatic mass suspicious for early hepatocellular carcinoma or a solitary metastatic lesion. 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 He has had chronic pancreatitis. On 05/02/2019 he was admitted to the hospital after presenting to the emergency room with abdominal pain and vomiting. His initial CT abdomen/pelvis showed multiple dilated loops of proximal small bowel with scattered air-fluid levels, concerning for early small bowel obstruction. There were findings of cirrhosis and mild splenomegaly. His symptoms improved with conservative management. His repeat CT abdomen/pelvis on 05/06/2019 showed resolution of the small bowel distention. The pancreas appeared normal. That study, however, did show development of a left hepatic lobe lateral segment space-occupying lesion which was new from a prior study in October 2017. It measured approximately 1.5 cm. His laboratory studies during that time included an AFP level which was elevated at 26.9 ng/mL. His serum lipase was mildly elevated at 131/60 U/L. I had seen him initially on 05/18/2019. He was not able to have the hepatic lesion evaluated by MRI due to his having a pacemaker. We discussed the possibility of referral to a tertiary facility for further evaluation versus continuing follow-up here with close observation. Given his multiple underlying medical illnesses, he opted for the latter. His repeat CT abdomen/pelvis on 06/29/2019 showed hypodense mass in the lateral segment of the left lobe of the liver measuring 2.3 x 1.7 x 2.8 cm. It did not appear significantly changed from the prior CT scan. His other medical illnesses include hypertension, hyperlipidemia, GERD, and COPD. He has a history of smoking 1 pack of cigarettes daily for 40 years. He has a history of heavy alcohol use. He had most recently quit again in April 2019. INTERIM HISTORY: Repeat CT abdomen/pelvis on 09/28/2019 showed indeterminate lesion in the left lobe of the liver measuring 1.64 x 2.62 x 3.41 cm, unchanged from the previous study. It did appear to show peripheral enhancement, consistent with hemangioma or focal fat infiltration. Liver abscess, metastatic lesion, or primary liver tumor were felt to be less likely. There were no other acute findings and no other changes noted. He continued observation/symptomatic management. He had repeat CT abdomen/pelvis again on 03/15/2020. It showed significant enlargement of the lesion in the left lobe of the liver, now measuring 3.46 x 4.04 x 4.91 cm. The liver also showed some changes compatible with cirrhosis. There was no evidence of metastatic disease. He is seen for a follow-up visit. He had previously been scheduled to have a liver biopsy tomorrow, but he apparently was not told to stop his apixaban, and he did take his regularly scheduled dosage this morning. He has very limited activity. He says he is mostly just laying around on the couch. His ECOG score is 3. Appetite is so-so. His weight is up 5 pounds. He does not have fever. He does have some night sweating. He has shortness of breath with activity. He does not complain of cough. He does have occasional chest pain. He has been having nausea and he has a little bit of heartburn. He continues to have pain across his upper abdomen, and he also complains that his stomach hurts when he eats. Bowel and bladder function have been okay. He complains that his left shoulder is killing him. He has no other joint or bone pain. He reports having numbness/tingling in his hands. Medications: Aspirin 1 (81 mg) Tablet Oral daily, Eliquis 1 Tablet (of 5 mg) Oral daily, Lisinopril 1 (40 mg) Tablet Oral daily, Metoprolol Tartrate 1 (25 mg) Tablet Oral daily, Nitroglycerin 1 (0.4 mg) Tablet, sublingual Sublingual PRN, Ofloxacin 1 drop(s) (of 0.3 %) Solution Ophthalmic 6x/d, Protonix 1 (40 mg) Tablet, enteric coated Oral daily, Sertraline HCl 1 (50 mg) Tablet Oral daily, Simvastatin 1 (40 mg) Tablet Oral at bedtime, tiZANidine HCl 1 Tablet (of 4 mg) Oral q for 8 hours PRN Allergies: Relistor Review of Systems: Constitutional - His energy is poor. He has very limited activity. He is mostly just lying on the couch. Appetite is just so-so. His weight is up 5 pounds. He does not have fever. He does have some sweating at night. ECOG score is 3, ENMT - No sinus congestion/drainage. No mouth sores. He recently had some teeth pulled. No sore throat or difficulty swallowing, Hematologic/Lymphatic - No abnormal bruising or bleeding, Respiratory - He has shortness of breath. No cough. No pleuritic pain or hemoptysis, Cardiovascular - He occasionally has chest pain. No palpitations, Gastrointestinal - He sometimes has nausea and he has a little bit of heartburn. He continues to have significant pain across the upper abdomen. His stomach hurts after eating. No diarrhea or constipation. No blood in the stool or black stools, Genitourinary (M) - No dysuria or hematuria. No urinary frequency. No urgency or incontinence, Musculoskeletal - He complains that his left shoulder is killing him. He has no other joint or bone pain, Integumentary - No skin rash, Neurologic - He occasionally has headache and he sometimes has dizziness. He has numbness/tingling in his hands. He has no other focal neurologic symptoms, Psychiatric - He does not complain of anxiety or depression. He does have difficulty sleeping. Vital Signs: Performed on Mar 21, 2020 09:56 Height - 67.00 in Weight - 180 lbs (HIGH) BSA - 1.93 sq.m BMI - 28.19 Temperature - 98.4 F Pulse - 77 /min Respiration - 17 /min BP - 174/94 mm(hg) (HIGH) O2 Sat - 98 % Pain - 8 Physical Examination: Constitutional - He appears chronically ill, Eyes - Sclerae nonicteric. Conjunctivae clear, ENMT - There is a polypoid lesion in the right buccal mucosa just inside the mouth. There are no other lesions noted in the oral cavity, Hematologic/Lymphatic - No cervical, clavicular, or axillary adenopathy, Respiratory - Lungs are clear with some decrease in air movement bilaterally, Cardiovascular - Heart rhythm is regular. There is a II/ systolic murmur. There is no gallop or rub noted, Abdomen - Mildly distended. There is mild tenderness in the epigastric area. Liver is not enlarged. Spleen is not palpable. There is no abdominal mass or ascites noted and there is no inguinal adenopathy, Extremities - No edema, Neurologic - No focal neurologic deficits noted. Lab/Imaging: CBC shows hemoglobin 13.2 g, white blood cell count 6700, and platelet count 121,000. Comprehensive metabolic profile shows mildly elevated liver enzymes with total bilirubin normal at 0.6 mg/dL. Lipase is mildly elevated at 96/60 U/L. Repeat AFP level is pending. Impression: 1. Patient with CT evidence of left lateral hepatic lobe lesion, initially felt to be suspicious for early hepatocellular carcinoma or a solitary metastatic lesion. 2. He was having multiple GI complaints including abdominal pain, nausea, and diarrhea, all of which were clearly unrelated. 3. He has known liver cirrhosis, probably alcohol related. 4. He was treated for hepatitis C in 2017. 5. He has history of chronic pancreatitis. His other medical illnesses include: 6. Hypertension. 7. GERD. 8. COPD. 9. 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 10. 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 He has been followed on close observation for the hepatic lesion, as he was not able to be evaluated with MRI due to his pacemaker. During follow-up he continued to have abdominal pain, though a specific underlying cause for that was not determined. It appeared unlikely that it was related to the hepatic lesion. As of his follow-up in September 2019, the lesion appeared stable by CT scan. However, the repeat CT on 03/15/2020 showed significant enlargement of the liver lesion, so that the probability is very high that he has hepatocellular carcinoma. He continues to have significant pain in the upper abdominal area. Plan: The biopsy will be rescheduled so he will be off both apixaban and aspirin prior to the procedure. He will have further evaluation as indicated when the biopsy results are available. In the meantime, he will be given a prescription for MSIR 15 mg to take as needed for the pain. Signed By: Fredi Armas M.D. <<Signature on File>>
== END 2020-03-21 09:54 | disposition home or self-care (01) ==
PROVIDERS: PCP Registered Nurse; Visit Provider Internal Medicine Medical Oncology
DX: K76.9 Liver disease, unspecified (principal); R93.2 Abnormal findings on diagnostic imaging of liver and biliary tract; I10 Essential (primary) hypertension; K21.9 Gastro-esophageal reflux disease without esophagitis; J44.9 Chronic obstructive pulmonary disease, unspecified; Z95.0 Presence of cardiac pacemaker; Z94.7 Corneal transplant status; R10.10 Upper abdominal pain, unspecified; Z79.01 Long term (current) use of anticoagulants; Z79.82 Long term (current) use of aspirin; Z79.899 Other long term (current) drug therapy
CPT/HCPCS: 99214

== ENCOUNTER → 2020-04-07 09:34 | Day surgery (SDC) | payer MEDICAID, SELFPAY ==
[2020-04-05 07:25] VITALS: BMI 29.0
[2020-04-07] VITALS (19 sets, daily range): BP systolic 129–154; BP diastolic 72–84; PULSE 70–94; RESP 16–18; TEMP 37.1–37.5; O2SAT 92–100
--- NOTE | 2020-04-07 10:14 | US_ITS ---
WS: [id number] ULTRASOUND-GUIDED LIVER BIOPSY HISTORY: liver biopsy, LEFT hepatic mass. Procedure, risks, and complications have been explained to the patient. Consent is obtained. Comparison: Multiple prior CTs and ultrasounds are reviewed. Skin is cleansed with ChloraPrep and then anesthetized with 1% buffered lidocaine. Core biopsy is per formed with an 18 gauge Achieve needle. Specimen is placed within formalin. No complications encounte red. Several or biopsies are performed of the solid mass in the LEFT lobe of the liver without complicatio n. After the second biopsy patient complained of epigastric discomfort and no additional biopsies wer e performed. Patient will be observed for 2 hours post procedure. No bleeding observed at the time of the biopsy. US/ biopsy liver [id number] IMPRESSION: 1. Uncomplicated biopsy of the LEFT hepatic lobe mass. Final pathology results are pending. 2. No complications.
[2020-04-07 10:41] LABS: INR 1.06 (0.8-1.2)
[2020-04-07] MEDS: fentaNYL 50 mcg/mL INJ 2mL IVP ×2 (11:18→11:37)
[2020-04-07] MEDS: midazolam 1 mg/mL INJ 2 mL IVP (11:20)
[2020-04-07] MEDS: sodium chloride 0.9% 1,000 ML 30 ML IV (11:46)
[2020-04-07] MEDS: morphine 4 mg/mL SDV 1 mL IVP (12:46)
== END | disposition home or self-care (01) ==
PROVIDERS: Radiology Diagnostic Radiology; PCP Registered Nurse; Visit Provider Internal Medicine Medical Oncology
DX: K76.89 Other specified diseases of liver (principal)
CPT/HCPCS: 47000; 76942; 85610; 88307; 96374; 96375; J2250; J2270; J2310; J3010; J3490; J7030

== ENCOUNTER 2020-05-12 08:06 | Outpatient (CLI) | payer MEDICAID, SELFPAY ==
--- NOTE | 2020-05-13 10:53 | ONC FU_ITS ---
Dr. Armas Patient Follow-Up Note Patient: Say Cardenas Unit #: [id number]: [id number] Dicatated By: Fredi Armas M.D.Date of Visit:May 12, 2020 Onc Med Follow-up/Prog Note Chief Complaint: Hepatocelluar carcinoma. History of Present Illness: This is a 60 year-old man with hepatocellular carcinoma. 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 He has had chronic pancreatitis. On 05/02/2019 he was admitted to the hospital after presenting to the emergency room with abdominal pain and vomiting. His initial CT abdomen/pelvis showed multiple dilated loops of proximal small bowel with scattered air-fluid levels, concerning for early small bowel obstruction. There were findings of cirrhosis and mild splenomegaly. His symptoms improved with conservative management. His repeat CT abdomen/pelvis on 05/06/2019 showed resolution of the small bowel distention. The pancreas appeared normal. That study, however, did show development of a left hepatic lobe lateral segment space-occupying lesion which was new from a prior study in October 2017. It measured approximately 1.5 cm. His laboratory studies during that time included an AFP level which was elevated at 26.9 ng/mL. His serum lipase was mildly elevated at 131/60 U/L. I had seen him initially on 05/18/2019. He was not able to have the hepatic lesion evaluated by MRI due to his having a pacemaker. We discussed the possibility of referral to a tertiary facility for further evaluation versus continuing follow-up here with close observation. Given his multiple underlying medical illnesses, he opted for the latter. His repeat CT abdomen/pelvis on 06/29/2019 showed hypodense mass in the lateral segment of the left lobe of the liver measuring 2.3 x 1.7 x 2.8 cm. It did not appear significantly changed from the prior CT scan. Repeat CT abdomen/pelvis on 09/28/2019 showed indeterminate lesion in the left lobe of the liver measuring 1.64 x 2.62 x 3.41 cm, unchanged from the previous study. It did appear to show peripheral enhancement, consistent with hemangioma or focal fat infiltration. Liver abscess, metastatic lesion, or primary liver tumor were felt to be less likely. There were no other acute findings and no other changes noted. He continued observation/symptomatic management. He had repeat CT abdomen/pelvis again on 03/15/2020. It showed significant enlargement of the lesion in the left lobe of the liver, now measuring 3.46 x 4.04 x 4.91 cm. The liver also showed some changes compatible with cirrhosis. There was no evidence of metastatic disease. Biopsy of the liver lesion on 04/07/2020 showed well-differentiated hepatocellular carcinoma. With that finding he was referred to [facility] for further management. His further imaging revealed bulky gastrohepatic ligament lymphadenopathy measuring 3.7 cm. Also noted was an enlarged periportal lymph node measuring 1.9 cm and additional retroperitoneal lymphadenopathy. 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 With that finding, the recommended treatment was palliative chemotherapy with gemcitabine/cisplatin and with possible addition of durvalumab. His other medical illnesses include hypertension, hyperlipidemia, GERD, and COPD. He has a history of smoking 1 pack of cigarettes daily for 40 years. He has a history of heavy alcohol use. He had most recently quit again in April 2019. INTERIM HISTORY: He is seen for a follow-up visit. His main complaint is that he is having severe pain in his mid abdominal area. He is getting only minimal relief with 15 mg MSIR. He complains that he has no energy. He has very limited activity. ECOG score is 3. He has appetite, but he has limited oral intake due to early satiety. His weight is down a few pounds. He does not have fever or night sweats. He has shortness of breath with activity. He has only a little bit of cough. He has had episodes of sharp pain in the mid chest area. He does have some nausea and he also complains of constipation. He has no complaints. He also has pain in his left shoulder. He does not complain of headache. He has having dysequilibrium. He has no focal neurologic symptoms. He is having significant anxiety and depression. Medications: Aspirin 1 (81 mg) Tablet Oral daily, Eliquis 1 Tablet (of 5 mg) Oral daily, Lisinopril 1 (40 mg) Tablet Oral daily, Metoprolol Tartrate 1 (25 mg) Tablet Oral daily, Nitroglycerin 1 (0.4 mg) Tablet, sublingual Sublingual PRN, Ofloxacin 1 drop(s) (of 0.3 %) Solution Ophthalmic 6x/d, Protonix 1 (40 mg) Tablet, enteric coated Oral daily, Sertraline HCl 1 (50 mg) Tablet Oral daily, Simvastatin 1 (40 mg) Tablet Oral at bedtime, tiZANidine HCl 1 Tablet (of 4 mg) Oral q for 8 hours PRN, Vitamin D Tablet Oral Allergies: Relistor Review of Systems: Constitutional - He complains that he has no energy. He has very limited activity. He has appetite, but he has very limited oral intake due to early satiety. His weight is down a few pounds. He does not have fever or night sweats. ECOG score is 3, ENMT - No sinus congestion/drainage. No mouth sores. No sore throat or difficulty swallowing, Hematologic/Lymphatic - No abnormal bruising or bleeding, Respiratory - He has shortness of breath with activity. He has a little bit of cough. He intermittently has sharp pain in the chest. No hemoptysis, Cardiovascular - No angina pain. No palpitations, Gastrointestinal - He is having severe pain in the mid abdominal area. He has nausea. No acid reflux. He has constipation. He has not been aware of any blood in the stool or black stools, Genitourinary (M) - No dysuria or hematuria. No urinary frequency. No urgency or incontinence, Musculoskeletal - He also has pain in the left shoulder, Integumentary - No skin rash, Neurologic - No headache. He has dysequilibrium. No numbness or tingling. No other focal neurologic symptoms, Psychiatric - He has anxiety and depression. He is not sleeping well. Vital Signs: Performed on May 12, 2020 08:16 Height - 67.00 in Weight - 177.6 lbs (LOW) BSA - 1.92 sq.m BMI - 27.82 Temperature - 98.7 F Pulse - 84 /min Respiration - 20 /min BP - 139/76 mm(hg) O2 Sat - 99 % Pain - 8 Physical Examination: Constitutional - He appears generally weak and he is in significant discomfort, Eyes - Sclerae nonicteric. Conjunctivae clear, ENMT - There is a polypoid lesion in the right buccal mucosa just inside the mouth. There are no other lesions noted in the oral cavity, Hematologic/Lymphatic - No cervical, clavicular, or axillary adenopathy, Respiratory - Lungs are clear with diminished air movement bilaterally, Cardiovascular - Heart rhythm is regular. There is a II/ systolic murmur. There is no gallop or rub noted, Abdomen - Mildly distended and firm. There is tenderness in the mid abdominal area, and there is a ventral hernia. Liver does not appear enlarged. Spleen is not palpable. There is no abdominal mass or ascites noted and there is no inguinal adenopathy, Extremities - No edema, Neurologic - No focal neurologic deficits noted. Impression: 1. Patient with CT evidence of left lateral hepatic lobe lesion, ultimately confirmed by biopsy to be well differentiated hepatocellular carcinoma. 2. 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 3. He is having severe abdominal pain. 4. He has known liver cirrhosis, presumed alcohol related. 5. He was treated for hepatitis C in 2017. 6. He has history of chronic pancreatitis. His other medical illnesses include: 7. Hypertension. 8. GERD. 9. COPD. 10. He has permanent pacemaker for symptomatic bradycardia. 11. 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 Plan: The pathology results were reviewed with the patient, and we discussed the clinic complications. He has locally advanced disease and with a combined hepatocellular carcinoma-cholangiocarcinoma the recommended treatment is a trial of palliative chemotherapy with gemcitabine/cisplatin. He is aware that this has no potential for cure him that the response rates with chemotherapy in this disease are relatively low. I reviewed potential side effects which may include nausea/vomiting, alopecia, fatigue, low blood counts, and neuropathy, among others. The possibility of adding immunotherapy with durvalumab also was discussed, but in this situation, as it is off label, I would prefer to reserve chemotherapy for second line treatment. I also discussed the possibility of just transitioning to symptomatic/supportive care with hospice, but he indicates he does want to try the chemotherapy. He will need a Port-A-Cath, as he has very poor peripheral venous access. I will plan to have him return to begin his first cycle of chemotherapy soon as the Port-A-Cath is in place. In the meantime, he will now start extended release morphine 60 mg every 12 hours with MSIR 30 mg up to 4 times daily as needed. He also will start citalopram 20 mg daily and his clonazepam will be increased to 0.5 mg to take 3 times daily as needed. He is cautioned about the potential for sedation with these medications. He also will start a bowel regimen with senna/docusate. Signed By: Fredi Armas M.D. <<Signature on File>>
== END 2020-05-12 08:07 | disposition home or self-care (01) ==
LOC: ONCMED 08:07
PROVIDERS: PCP Registered Nurse; Visit Provider Internal Medicine Medical Oncology
DX: C22.0 Liver cell carcinoma (principal); C77.2 Secondary and unspecified malignant neoplasm of intra-abdominal lymph nodes; F10.11 Alcohol abuse, in remission; I10 Essential (primary) hypertension; K21.9 Gastro-esophageal reflux disease without esophagitis; J44.9 Chronic obstructive pulmonary disease, unspecified; Z95.0 Presence of cardiac pacemaker; Z94.7 Corneal transplant status; Z79.899 Other long term (current) drug therapy
CPT/HCPCS: 99214

== ENCOUNTER → 2020-05-28 11:31 | Outpatient (BNVA) | payer MEDICAID, SELFPAY | PROVIDERS: PCP Registered Nurse; Visit Provider Surgery | DX: C22.9 Malignant neoplasm of liver, not specified as primary or secondary (principal) | CPT/HCPCS: 87635 ==

== ENCOUNTER 2020-05-31 11:02 | Day surgery (SDC) | payer MEDICAID, SELFPAY ==
[2020-05-30 10:25] VITALS: BMI 27.7
--- NOTE | 2020-05-31 | SCC_ITS ---
Procedure Done: Placement of PowerPort in the right subclavian vein 29.5 seconds of fluoroscopic guidance, for a cumulative dose of 3.54 mGy, was provided to Dr. Guadalupe by the radiology department. C-arm images of the chest were saved for the patient's permanent record. [facility]
--- NOTE | 2020-05-31 10:33 | W.PM.OPSUD ---
Surgery/Procedure H&P Update DATE OF PROCEDURE: May 31, 2020 DATE H&P PERFORMED: 05/30/20 H&P UPDATE INFORMATION: I have reviewed H&P completed within last 30 days, I have examined patient prior to procedure and No changes to prior documentation PLANNED PROCEDURE: Operation Date: 05/31/20 14:00 Proposed Procedures p Portacath Placement 53840 C22.9(Not Applicable) - Carlos Guadalupe MD
[2020-05-31 11:17] VITALS: BP 126/83; PULSE 91; RESP 20; TEMP 37.1; O2SAT 98
[2020-05-31] MEDS: sodium chloride 0.9% 1,000 ML 30 ML IV (11:52)
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
--- NOTE | 2020-05-31 13:35 | SC_ITS ---
WS: [id number] C-arm fluoroscopy view of right chest, 05/31/2020 Clinical Data: surgery Comparison: None Findings: A right Port-A-Cath has been inserted via the right subclavian vein and it ends in the supe rior vena cava. SC/C-arm FL for CVA [id number] Impression: Insertion of right Port-A-Cath.
[2020-05-31] MEDS: heparin, porcine 1,000 unit/mL INJ 10 mL 10000 UNIT INJECTION (14:15)
[2020-05-31] MEDS: lidocaine 1% INJ 20 mL IM (14:25)
[2020-05-31 14:43] VITALS: BP 144/85; PULSE 85; RESP 18; TEMP 36.6; O2SAT 97
[2020-05-31 15:13] VITALS: BP 119/81; PULSE 72; RESP 18; TEMP 36.6; O2SAT 96
--- NOTE | 2020-05-31 15:30 | ANE.PACU2 ---
Inpatient post-anesthesia follow up: Airway intact: Yes Vital signs: Temperature 97.8 F Pulse Rate 72 Respiratory Rate 18 Blood Pressure 119/81 Pulse Oximetry 96 Oxygen Delivery Me thod Room Air Oxygen Flow Rate Fraction of Inspir ed Oxygen Hydration adequate: Yes Nausea and vomiting: No Pain level: 1 Mental status: Baseline
--- NOTE | 2020-06-04 14:10 | PM.OP ---
Operative Report Date of procedure: May 31, 2020 Pre-op Diagnosis: Liver CA Post-op diagnosis: same Procedure Done: Placement of PowerPort in the right subclavian vein Fluoroscopic guidance and interpretation for placement of catheter Pathology: none sent Surgeon: Carlos Guadalupe Anesthesia: MAC Condition: stable Disposition: same day Procedure: The patient was taken to the Operating Room and the chest and neck bilaterally were prepped and draped in a sterile manner after the antibiotic had been administered and shoulder rolls had been placed. A total of 10 mL of 1% lidocaine with 0.5% Marcaine was infiltrated under the clavicle on the right side at the site of the planned entry into the subclavian vein. An introducer needle was then used to access the subclavian vein under the clavicle and after withdrawing blood syringe was removed and a guidewire passed under fluoroscopy into the superior vena cava. The site of the planned port was then marked on the chest and a 15 blade was used to make a 3 cm skin incision this was extended into the subcutaneous tissue using electrocautery and a subcutaneous pocket over the pectoralis fascia was created 2-0 Vicryl suture was used to suture the port to the pectoral fascia in the pocket on 3 sides. The catheter, after having been flushed with hep saline, was attached to the tunneler and a tunnel created between the port site and the subclavian vein entry site. Under fluoroscopy the dilator sheath was passed over the guidewire into the proximal superior vena cava. The inner dilator was removed and the sheath left behind and~ the catheter was introduced through the peel-away sheath with the tip in the superior vena cava. The peel-away sheath was removed. The proximal end of the catheter was cut to the right size and was attached to the port. Using a Patel needle the port was accessed, it withdrew blood easily and flushed easily. A final 5cc of heparin was used to flush the PowerPort. The subcutaneous tissue was approximated using interrupted 3-0 Vicryl sutures and the skin at the introducer site and the port site was closed using subcuticular running 4-0 Monocryl sutures. Surgical glue was applied and the patient was stable throughout the procedure. Fluoroscopic guidance and interpretation was performed for introduction of the guidewire in the right subclavian vein, passage of dilator and placement of catheter tip in the distal superior vena cava.
== END 2020-05-31 15:31 | disposition home or self-care (01) ==
PROVIDERS: PCP Registered Nurse; Visit Provider Surgery
PROC: (CPT 36561; principal; 2020-05-31 14:00)
DX: C22.8 Malignant neoplasm of liver, primary, unspecified as to type (principal); I48.91 Unspecified atrial fibrillation; I10 Essential (primary) hypertension; I25.2 Old myocardial infarction; Z95.0 Presence of cardiac pacemaker; B18.2 Chronic viral hepatitis C; E78.5 Hyperlipidemia, unspecified; K21.9 Gastro-esophageal reflux disease without esophagitis; Z79.01 Long term (current) use of anticoagulants; Z82.49 Family history of ischemic heart disease and other diseases of the circulatory system; Z82.3 Family history of stroke; F17.210 Nicotine dependence, cigarettes, uncomplicated; Z79.82 Long term (current) use of aspirin
CPT/HCPCS: 36561; 12345; 76000; 77001; C1788; J0690; J1644; J3010; J3490; J7030

== ENCOUNTER 2020-06-08 08:28 | Outpatient (CLI) | payer MEDICAID, SELFPAY ==
[2020-06-08 09:05] LABS: Basophils # 0.1 10^3/uL (0.0-0.1); Basophils % 1.3 %; Eosinophils # 0.2 10^3/uL (0.0-0.8); Eosinophils % 2.8 %; Hematocrit 37.1 % (42.0-52.0); Hemoglobin 11.8 g/dL (11.7-16.6); Lymphocytes # 0.8 10^3/uL (0.8-4.8); Lymphocytes % 13.8 %; Mean Corpuscular HGB Conc 31.8 g/dL (30.0-36.0); Mean Corpuscular Hemoglobin 26.2 pg (28.0-34.0); Mean Corpuscular Volume 82.4 fL (80-94); Mean Platelet Volume 12.4 fL (7.4-10.4); Monocytes # 0.6 10^3/uL (0.2-0.9); Monocytes % 10.4 %; Neutrophils # 4.33 10^3/uL (1.8-7.7); Neutrophils % 71.4 %; Nucleated Red Blood Cells % 0 %; Platelet Count 101 10^3/cmm (130-400); Red Cell Distribution Width 16.2 % (12.1-15.1); White Blood Count 6.1 10^3/uL (4.0-10.0)
[2020-06-08 09:39] LABS: Alanine Aminotransferase 33 U/L (0-41); Albumin Level 3.6 g/dL (3.5-5.2); Alkaline Phosphatase 158 IU/L (40-130); Anion Gap 16.5 (5-19); Aspartate Amino Transferase 65 U/L (0-40); Blood Urea Nitrogen 21 mg/dL (6-20); Calcium 9.9 mg/dL (8.5-10.5); Carbon Dioxide 23 mmol/L (22-29); Chloride 101 mmol/L (98-107); Globulin 4.7 g/dL (1.3-4.6); Glomerular Filtration Rate 86.7 mL/min (90-130); Glucose 129 mg/dL (65-115); Osmolality Calculated 287 mOsm/kg (285-295); Potassium 4.5 mmol/L (3.5-5.1); Sodium 136 mmol/L (136-145); Total Bilirubin 0.5 mg/dL (0.15-1.2); Total Protein 8.3 g/dL (6.6-8.7)
[2020-06-08] MEDS: sodium chloride 0.9% 250 ML 75 ML IV (10:45)
[2020-06-08] MEDS: FUROsemide 10 mg/mL SDV 2mL 20 MG IV (13:28)
[2020-06-08] MEDS: potassium chloride 20 MEQ in sodium chloride 0.9% 500 ML 500 MEQ IV (13:30)
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
== END 2020-06-08 08:29 | disposition home or self-care (01) ==
LOC: ONCMED 08:30
PROVIDERS: Internal Medicine Medical Oncology; PCP Registered Nurse; Visit Provider Nurse Practitioner
DX: Z51.11 Encounter for antineoplastic chemotherapy (principal); C22.0 Liver cell carcinoma; C77.2 Secondary and unspecified malignant neoplasm of intra-abdominal lymph nodes; K74.60 Unspecified cirrhosis of liver; I10 Essential (primary) hypertension; K21.9 Gastro-esophageal reflux disease without esophagitis; F44.9 Dissociative and conversion disorder, unspecified; Z95.0 Presence of cardiac pacemaker; Z94.7 Corneal transplant status
CPT/HCPCS: 80053; 85025; 96366; 96367; 96375; 96413; 96417; 99215; J1100; J1200; J1453; J1940; J2469; J3475; J3480; J3490; J7030; J7040; J7050; J9060; J9201

== ENCOUNTER 2020-06-15 06:03 | Outpatient (CLI) | payer MEDICAID, SELFPAY ==
[2020-06-15] MEDS: sodium chloride 0.9% 1,000 ML 999 ML IV (12:56)
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
== END 2020-06-15 06:04 | disposition home or self-care (01) ==
LOC: ONCMED 06:04
PROVIDERS: PCP Registered Nurse; Visit Provider Nurse Practitioner
DX: C22.0 Liver cell carcinoma (principal); C77.2 Secondary and unspecified malignant neoplasm of intra-abdominal lymph nodes; F17.210 Nicotine dependence, cigarettes, uncomplicated; K74.60 Unspecified cirrhosis of liver; K86.1 Other chronic pancreatitis; I10 Essential (primary) hypertension; K21.9 Gastro-esophageal reflux disease without esophagitis; J44.9 Chronic obstructive pulmonary disease, unspecified; I48.91 Unspecified atrial fibrillation; F10.11 Alcohol abuse, in remission; Z79.01 Long term (current) use of anticoagulants; Z94.9 Transplanted organ and tissue status, unspecified; Z95.0 Presence of cardiac pacemaker
CPT/HCPCS: 96361; 96365; 96367; 99214; J1100; J3490; J7030

== ENCOUNTER → 2020-06-21 11:33 | Outpatient (BNVA) | payer MEDICAID, SELFPAY | PROVIDERS: PCP Registered Nurse; Visit Provider Internal Medicine Medical Oncology | DX: K76.9 Liver disease, unspecified (principal) | CPT/HCPCS: 80053; 85025 ==

== ENCOUNTER 2020-06-22 05:58 | Outpatient (CLI) | payer MEDICAID, SELFPAY ==
[2020-06-22] MEDS: FUROsemide 10 mg/mL SDV 2mL 20 MG IV (16:10)
[2020-06-22] MEDS: potassium chloride 20 MEQ in sodium chloride 0.9% 500 ML 250 MEQ IV (16:12)
[2020-06-22] MEDS: sodium chloride 0.9% 250 ML 1213 ML IV (16:22)
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
== END 2020-06-22 05:59 | disposition home or self-care (01) ==
LOC: ONCMED 05:59
PROVIDERS: PCP Registered Nurse; Visit Provider Nurse Practitioner
DX: Z51.11 Encounter for antineoplastic chemotherapy (principal); C22.0 Liver cell carcinoma; D69.59 Other secondary thrombocytopenia; F10.20 Alcohol dependence, uncomplicated; F19.10 Other psychoactive substance abuse, uncomplicated; J44.9 Chronic obstructive pulmonary disease, unspecified; K74.60 Unspecified cirrhosis of liver; K21.9 Gastro-esophageal reflux disease without esophagitis; Z86.19 Personal history of other infectious and parasitic diseases; K86.1 Other chronic pancreatitis; E78.5 Hyperlipidemia, unspecified; I10 Essential (primary) hypertension; Z79.899 Other long term (current) drug therapy
CPT/HCPCS: 96367; 96375; 96413; 96417; 99214; J1100; J1200; J1453; J1940; J2469; J3475; J3480; J3490; J7030; J7040; J7050; J9060; J9201

== ENCOUNTER 2020-06-27 05:33 | Outpatient (RCR) | payer MEDICAID, SELFPAY ==
[2020-06-26 13:45] LABS: Basophils # 0.1 10^3/uL (0.0-0.1); Basophils % 1.2 %; Eosinophils # 0.1 10^3/uL (0.0-0.8); Hematocrit 39.5 % (42.0-52.0); Hemoglobin 12.3 g/dL (11.7-16.6); Lymphocytes # 0.9 10^3/uL (0.8-4.8); Lymphocytes % 20.6 %; Mean Corpuscular HGB Conc 31.1 g/dL (30.0-36.0); Mean Corpuscular Hemoglobin 26.3 pg (28.0-34.0); Mean Corpuscular Volume 84.6 fL (80-94); Mean Platelet Volume 11.2 fL (7.4-10.4); Monocytes % 0.5 %; Neutrophils # 3.23 10^3/uL (1.8-7.7); Neutrophils % 74.5 %; Nucleated Red Blood Cells % 0 %; Platelet Count 165 10^3/cmm (130-400); Red Blood Count 4.67 10^6/uL (4.1-5.3); Red Cell Distribution Width 19.4 % (12.1-15.1); White Blood Count 4.3 10^3/uL (4.0-10.0)
[2020-06-26 13:58] LABS: Alanine Aminotransferase 141 U/L (0-41); Albumin Level 3.8 g/dL (3.5-5.2); Alkaline Phosphatase 186 IU/L (40-130); Anion Gap 14.2 (5-19); Aspartate Amino Transferase 161 U/L (0-40); Blood Urea Nitrogen 27 mg/dL (6-20); Carbon Dioxide 23 mmol/L (22-29); Chloride 102 mmol/L (98-107); Globulin 4.4 g/dL (1.3-4.6); Glomerular Filtration Rate 115.8 mL/min (90-130); Glucose 114 mg/dL (65-115); Osmolality Calculated 286 mOsm/kg (285-295); Potassium 4.2 mmol/L (3.5-5.1); Sodium 135 mmol/L (136-145); Total Protein 8.2 g/dL (6.6-8.7)
[2020-06-27] MEDS: sodium chloride 0.9% 250 ML 75 ML IV (12:37)
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
[2020-06-27] MEDS: FUROsemide 10 mg/mL SDV 2mL 20 MG IV (16:12)
[2020-06-27] MEDS: potassium chloride 20 MEQ in sodium chloride 0.9% 500 ML 250 MEQ IV (16:14)
== END 2020-07-01 23:59 | disposition home or self-care (01) ==
LOC: ONCMED 05:33
PROVIDERS: PCP Registered Nurse; Visit Provider Nurse Practitioner
DX: Z51.11 Encounter for antineoplastic chemotherapy (principal); C22.1 Intrahepatic bile duct carcinoma; C77.2 Secondary and unspecified malignant neoplasm of intra-abdominal lymph nodes; K86.1 Other chronic pancreatitis; I10 Essential (primary) hypertension; E78.5 Hyperlipidemia, unspecified; K21.9 Gastro-esophageal reflux disease without esophagitis; J44.9 Chronic obstructive pulmonary disease, unspecified; F17.210 Nicotine dependence, cigarettes, uncomplicated; F10.21 Alcohol dependence, in remission; Z79.82 Long term (current) use of aspirin; Z79.01 Long term (current) use of anticoagulants; Z86.19 Personal history of other infectious and parasitic diseases; Z95.0 Presence of cardiac pacemaker
CPT/HCPCS: 36415; 80053; 85025; 96367; 96375; 96413; 96417; 99214; J1100; J1200; J1453; J1940; J2469; J3475; J3480; J7030; J7040; J7050; J9060; J9201

== ENCOUNTER → 2020-07-10 10:41 | Outpatient (BNVA) | payer MEDICAID, SELFPAY | PROVIDERS: PCP Registered Nurse; Visit Provider Internal Medicine Medical Oncology | DX: Z01.89 Encounter for other specified special examinations (principal); D69.59 Other secondary thrombocytopenia | CPT/HCPCS: 80053; 83690; 85025 ==

== ENCOUNTER 2020-07-26 08:08 | Outpatient (RCR) | payer MEDICAID, SELFPAY ==
--- NOTE | 2020-07-11 09:24 | ONC FU_ITS ---
Dr. Armas Patient Follow-Up Note Patient: Say Cardenas Unit #: [id number]: 1960 Dicatated By: Fredi Armas M.D.Date of Visit:Jul 11, 2020 Onc Med Follow-up/Prog Note Chief Complaint: Hepatocelluar carcinoma. History of Present Illness: This is a 60 year-old man with hepatocellular carcinoma. 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 He has had chronic pancreatitis. On 05/02/2019 he was admitted to the hospital after presenting to the emergency room with abdominal pain and vomiting. His initial CT abdomen/pelvis showed multiple dilated loops of proximal small bowel with scattered air-fluid levels, concerning for early small bowel obstruction. There were findings of cirrhosis and mild splenomegaly. His symptoms improved with conservative management. His repeat CT abdomen/pelvis on 05/06/2019 showed resolution of the small bowel distention. The pancreas appeared normal. That study, however, did show development of a left hepatic lobe lateral segment space-occupying lesion which was new from a prior study in October 2017. It measured approximately 1.5 cm. His laboratory studies during that time included an AFP level which was elevated at 26.9 ng/mL. His serum lipase was mildly elevated at 131/60 U/L. I had seen him initially on 05/18/2019. He was not able to have the hepatic lesion evaluated by MRI due to his having a pacemaker. We discussed the possibility of referral to a tertiary facility for further evaluation versus continuing follow-up here with close observation. Given his multiple underlying medical illnesses, he opted for the latter. His repeat CT abdomen/pelvis on 06/29/2019 showed hypodense mass in the lateral segment of the left lobe of the liver measuring 2.3 x 1.7 x 2.8 cm. It did not appear significantly changed from the prior CT scan. Repeat CT abdomen/pelvis on 09/28/2019 showed indeterminate lesion in the left lobe of the liver measuring 1.64 x 2.62 x 3.41 cm, unchanged from the previous study. It did appear to show peripheral enhancement, consistent with hemangioma or focal fat infiltration. Liver abscess, metastatic lesion, or primary liver tumor were felt to be less likely. There were no other acute findings and no other changes noted. He continued observation/symptomatic management. He had repeat CT abdomen/pelvis again on 03/15/2020. It showed significant enlargement of the lesion in the left lobe of the liver, now measuring 3.46 x 4.04 x 4.91 cm. The liver also showed some changes compatible with cirrhosis. There was no evidence of metastatic disease. Biopsy of the liver lesion on 04/07/2020 showed well-differentiated hepatocellular carcinoma. With that finding he was referred to [facility] for further management. His further imaging revealed bulky gastrohepatic ligament lymphadenopathy measuring 3.7 cm. Also noted was an enlarged periportal lymph node measuring 1.9 cm and additional retroperitoneal lymphadenopathy. 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 With that finding, the recommended treatment was palliative chemotherapy with gemcitabine/cisplatin and with possible addition of durvalumab. His other medical illnesses include hypertension, hyperlipidemia, GERD, and COPD. He has a history of smoking 1 pack of cigarettes daily for 40 years. He has a history of heavy alcohol use. He had most recently quit again in April 2019. INTERIM HISTORY: He began cycle 1 of gemcitabine/cisplatin on 06/08/2020. He was able to tolerated without acute toxicity, but his day 8 treatment was held due to neutropenia. He continued with cycle 2 on 06/22/2020, he did receive a dose reduction. He is seen now for a follow-up visit. He says he feels like crap. He has no energy and he has virtually no activity. ECOG score is 3. Appetite is a little better, but not good, and he has early satiety. He is losing weight. He has not had fever. He does have night sweating. He has shortness of breath and cough. He has pain in his lower chest/upper abdomen. He also has significant pain in the lower abdominal area. He has not been having nausea. He had one recent episode of real bad acid reflux. He has having some difficulty getting his bowels to move. He recently has had some urinary frequency. He has some generalized aching. He complains of headache and dizziness. He has no numbness/paresthesia or other focal neurologic symptoms. Medications: artifical tears 1 Drop(s) Solution Ophthalmic PRN, Aspirin 1 (81 mg) Tablet Oral daily, Eliquis 1 Tablet (of 5 mg) Oral daily, Lisinopril 1 (40 mg) Tablet Oral daily, Metoprolol Tartrate 1 (25 mg) Tablet Oral daily, Morphine Sulfate 1 Tablet (of 30 mg) Oral q 4 hours, Morphine Sulfate ER 1 Tablet (of 60 mg) Tablet, controlled release Oral b.i.d., Nitroglycerin 1 (0.4 mg) Tablet, sublingual Sublingual PRN, Ofloxacin 1 drop(s) (of 0.3 %) Solution Ophthalmic 6x/d, Protonix 1 (40 mg) Tablet, enteric coated Oral daily, Sertraline HCl 1 (50 mg) Tablet Oral daily, Simvastatin 1 (40 mg) Tablet Oral at bedtime, tiZANidine HCl 1 Tablet (of 4 mg) Oral q for 8 hours PRN, Vitamin D Tablet Oral Allergies: Relistor Review of Systems: Constitutional - He has no energy, and he has virtually no activity. Appetite is poor. He has early satiety. He is losing weight. No fever. He has night sweats. ECOG score is 3, ENMT - No sinus congestion/drainage. No mouth sores. No sore throat or difficulty swallowing, Hematologic/Lymphatic - No abnormal bruising or bleeding, Respiratory - He has shortness of breath and cough. No pleuritic pain or hemoptysis, Cardiovascular - No angina pain. No palpitations, Gastrointestinal - He has pain in the lower chest/upper abdomen, and he also has pain in the lower abdominal area. No nausea. He had one episode of real bad acid reflux. He is having some difficulty with constipation. No blood in the stool or black stools, Genitourinary (M) - No dysuria or hematuria. Recently he has had some urinary frequency. No urgency or incontinence, Musculoskeletal - He has some generalized aching, Integumentary - No skin rash, Neurologic - He has headaches and he has dizziness. No numbness or tingling. No other focal neurologic symptoms, Psychiatric - He has anxiety/depression. He has difficulty sleeping. Vital Signs: Performed on Jul 11, 2020 08:41 Height - 67.00 in Weight - 165.2 lbs (LOW) BSA - 1.86 sq.m BMI - 25.87 Temperature - 98.8 F Pulse - 73 /min Respiration - 24 /min BP - 121/62 mm(hg) O2 Sat - 99 % Pain - 7 Physical Examination: Constitutional - He appears generally weak, Eyes - Sclerae nonicteric. Conjunctivae clear, ENMT - No lesions noted in the oral cavity, Hematologic/Lymphatic - No cervical, clavicular, or axillary adenopathy, Respiratory - Lungs are clear with diminished air movement bilaterally, Cardiovascular - Heart rhythm is regular. There is a II/ systolic murmur. There is no gallop or rub noted, Abdomen - Mildly distended and firm. There is mild abdominal tenderness. Liver does not appear enlarged. Spleen is not palpable. There is no abdominal mass noted. He does not appear to have ascites. There is no inguinal adenopathy noted, Extremities - No edema, Neurologic - No focal neurologic deficits noted. Lab/Imaging: Test performed on Jul 11, 2020 08:59 WBC 4.3 10^9/L RBC 3.9 10^12/L HGB 10.8 g/dL HCT 33.2 % MCV 84.9 fl MCH 27.8 pg MCHC 32.7 g/dL RDW 23.4 % Platelet Count 219 10^9/L Neutrophils (Gran) 2.924 10^9/L Lymphocytes 1.0363 10^9/L Monocytes 0.3397 10^9/L Impression: 1. Patient with CT evidence of left lateral hepatic lobe lesion, ultimately confirmed by biopsy to be well differentiated hepatocellular carcinoma. 2. 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 3. He is having severe abdominal pain. 4. He has known liver cirrhosis, presumed alcohol related. 5. He was treated for hepatitis C in 2017. 6. He has history of chronic pancreatitis. His other medical illnesses include: 7. Hypertension. 8. GERD. 9. COPD. 10. He has permanent pacemaker for symptomatic bradycardia. 11. 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 He began cycle 1 of palliative chemotherapy with gemcitabine/cisplatin on 06/08/2020. His cycle 1 day 8 treatment was held due to neutropenia. He continued with cycle 2 on 06/22/2020, and he did receive a dose reduction with that cycle. At this point he appears to be tolerating the chemotherapy with acceptable toxicity, but he does have very poor performance status, and as yet he has not been evaluated for response. Plan: He is due for restaging CT abdomen/pelvis. If he is showing response he will be given the option to continue with further chemotherapy. If there is evidence of disease progression, we may try transitioning to second line immunotherapy or transition to symptomatic/supportive care with hospice. Signed By: Fredi Armas M.D. <<Signature on File>>
--- NOTE | 2020-07-11 09:48 | CT_ITS ---
WS: [id number] CT scan of the abdomen and pelvis with Oral and IV contrast. Additional two-dimensional coronal and s agittal reconstruction was performed. 07/11/2020 Clinical Data: HEPATOCELLULAR CANCER Comparison: CT abdomen and pelvis, 03/15/2020. DLP: 1164.[address] scans at [facility] use at least one of these dose optimization techniques: automat ed exposure control; mA and/or kV adjustment per patient size (includes targeted exams where dose is matched to clinical indication); or iterative reconstruction. Findings: The lower lungs show no nodules, masses or effusions. There are pacemaker wires in the heart. The mass in the left lobe of liver has increased in size and now measures 4.66 x 8.19 cm. The right l obe of the liver is not involved. There are enlarged nodes in the central portion of the abdomen surr ounding the celiac artery. There are clips in the gallbladder fossa from a cholecystectomy. The spleen, adrenal glands and berrios creas are normal. The kidneys show equal bilateral contrast excretion with a small right renal cortical cyst. No hydron ephrosis or renal calculi are seen. The abdominal aorta is normal in size with calcification in the wall. No appendicitis or diverticulitis is seen. There are numerous descending colon and sigmoid diverticul a. Oral contrast is in the stomach, small bowel and colon, and there is no bowel dilatation. No abscess, ascites, obstruction or free air is seen. The bladder is unremarkable. The prostate is enlarged. There is a small fat-containing right inguinal hernia.. There is sclerosis of the anterior inferior aspect of the T10 vertebral body which could represent a metastatic lesion. CT/CT abdomen pelvis w con* [id number] Impression: 1. Enlarging lesion in the left lobe liver which is a hepatocellular carcinoma. 2. Large mid abdominal lymph nodes. 3. Questionable sclerotic metastasis of the anterior inferior aspect of the T10 vertebral body.
[2020-07-11] MEDS: iohexol 300 mg/mL 50 mL Btl PO (09:49)
[2020-07-11] MEDS: iohexol 300 mg/mL 100 mL Btl IV (12:13)
[2020-07-26 13:21] LABS: Basophils # 0.1 10^3/uL (0.0-0.1); Basophils % 2.5 %; Eosinophils # 0.2 10^3/uL (0.0-0.8); Eosinophils % 3.3 %; Hematocrit 38.4 % (42.0-52.0); Lymphocytes # 1.1 10^3/uL (0.8-4.8); Lymphocytes % 19.7 %; Mean Corpuscular HGB Conc 31.3 g/dL (30.0-36.0); Mean Corpuscular Hemoglobin 27.7 pg (28.0-34.0); Mean Corpuscular Volume 88.7 fL (80-94); Mean Platelet Volume 13.1 fL (7.4-10.4); Monocytes # 0.7 10^3/uL (0.2-0.9); Neutrophils # 3.48 10^3/uL (1.8-7.7); Neutrophils % 61.1 %; Nucleated Red Blood Cells % 0 %; Platelet Count 94 10^3/cmm (130-400); Red Blood Count 4.33 10^6/uL (4.1-5.3); Red Cell Distribution Width 19.4 % (12.1-15.1); White Blood Count 5.7 10^3/uL (4.0-10.0)
[2020-07-26 13:53] LABS: Alanine Aminotransferase 27 U/L (0-41); Albumin Level 3.4 g/dL (3.5-5.2); Alkaline Phosphatase 180 IU/L (40-130); Anion Gap 14.2 (5-19); Aspartate Amino Transferase 48 U/L (0-40); Blood Urea Nitrogen 13 mg/dL (6-20); Calcium 8.7 mg/dL (8.5-10.5); Carbon Dioxide 22 mmol/L (22-29); Chloride 104 mmol/L (98-107); Globulin 4.3 g/dL (1.3-4.6); Glomerular Filtration Rate 138.4 mL/min (90-130); Glucose 108 mg/dL (65-115); Osmolality Calculated 283 mOsm/kg (285-295); Potassium 4.2 mmol/L (3.5-5.1); Sodium 136 mmol/L (136-145); Thyroid Stimulating Hormone 2.81 uIU/mL (0.27-4.20); Total Bilirubin 0.5 mg/dL (0.15-1.2); Total Protein 7.7 g/dL (6.6-8.7)
[2020-07-26 14:16] LABS: Slide Review Slide Review Perform
[2020-07-26] MEDS: sodium chloride 0.9% 250 ML 75 ML IV (15:12)
--- NOTE | 2020-07-30 12:27 | ONC FU_ITS ---
Dr. Armas Patient Follow-Up Note Patient: Say Cardenas Unit #: [id number]: [id number] Dicatated By: Fredi Armas M.D.Date of Visit:Jul 26, 2020 Onc Med Follow-up/Prog Note Chief Complaint: Hepatocelluar carcinoma. History of Present Illness: This is a 60 year-old man with hepatocellular carcinoma. 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 He has had chronic pancreatitis. On 05/02/2019 he was admitted to the hospital after presenting to the emergency room with abdominal pain and vomiting. His initial CT abdomen/pelvis showed multiple dilated loops of proximal small bowel with scattered air-fluid levels, concerning for early small bowel obstruction. There were findings of cirrhosis and mild splenomegaly. His symptoms improved with conservative management. His repeat CT abdomen/pelvis on 05/06/2019 showed resolution of the small bowel distention. The pancreas appeared normal. That study, however, did show development of a left hepatic lobe lateral segment space-occupying lesion which was new from a prior study in October 2017. It measured approximately 1.5 cm. His laboratory studies during that time included an AFP level which was elevated at 26.9 ng/mL. His serum lipase was mildly elevated at 131/60 U/L. I had seen him initially on 05/18/2019. He was not able to have the hepatic lesion evaluated by MRI due to his having a pacemaker. We discussed the possibility of referral to a tertiary facility for further evaluation versus continuing follow-up here with close observation. Given his multiple underlying medical illnesses, he opted for the latter. His repeat CT abdomen/pelvis on 06/29/2019 showed hypodense mass in the lateral segment of the left lobe of the liver measuring 2.3 x 1.7 x 2.8 cm. It did not appear significantly changed from the prior CT scan. Repeat CT abdomen/pelvis on 09/28/2019 showed indeterminate lesion in the left lobe of the liver measuring 1.64 x 2.62 x 3.41 cm, unchanged from the previous study. It did appear to show peripheral enhancement, consistent with hemangioma or focal fat infiltration. Liver abscess, metastatic lesion, or primary liver tumor were felt to be less likely. There were no other acute findings and no other changes noted. He continued observation/symptomatic management. He had repeat CT abdomen/pelvis again on 03/15/2020. It showed significant enlargement of the lesion in the left lobe of the liver, measuring 3.46 x 4.04 x 4.91 cm. The liver also showed some changes compatible with cirrhosis. There was no evidence of metastatic disease. Biopsy of the liver lesion on 04/07/2020 showed well-differentiated hepatocellular carcinoma. With that finding he was referred to [facility] for further management. His further imaging revealed bulky gastrohepatic ligament lymphadenopathy measuring 3.7 cm. Also noted was an enlarged periportal lymph node measuring 1.9 cm and additional retroperitoneal lymphadenopathy. 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 With that finding, the recommended treatment was palliative chemotherapy with gemcitabine/cisplatin and with possible addition of durvalumab. His other medical illnesses include hypertension, hyperlipidemia, GERD, and COPD. He has a history of smoking 1 pack of cigarettes daily for 40 years. He has a history of heavy alcohol use. He had most recently quit again in April 2019. INTERIM HISTORY: He began cycle 1 of gemcitabine/cisplatin on 06/08/2020. He was able to tolerated without acute toxicity, but his day 8 treatment was held due to neutropenia. He continued with cycle 2 on 06/22/2020, he did receive a dose reduction. Restaging CT of the abdomen/pelvis on 07/11/2020 showed enlarging lesion in the left lobe of the liver along with enlarged mid abdominal lymph nodes. There was questionable sclerotic metastasis in the anterior aspect of the T10 vertebral body. Overall, findings were consistent with disease progression. He had previously been notified of the CT findings. Given his very poor performance status, we had discussed the possibility continuing further treatment with a trial of second line immunotherapy versus transitioning to symptomatic/supportive care. He was motivated to continue treatment. He is seen now for a follow-up visit. He says he has been feeling a little bit better generally since he has been off the chemotherapy. However, he still has very limited activity. His ECOG score is 3. His appetite is poor. He has continued to lose weight. He does not have fever or night sweats. He has cough and he also has shortness of breath with activity. He does not complain of chest pain. His abdominal pain is about the same. He has nausea at times and he also complains of heartburn. Bowel and bladder function remain adequate. He also has pain in his back and legs. He does not complain of headache. He does have dizziness and he also complains of having numbness in his right leg. Medications: artifical tears 1 Drop(s) Solution Ophthalmic PRN, Aspirin 1 (81 mg) Tablet Oral daily, Eliquis 1 Tablet (of 5 mg) Oral daily, Lisinopril 1 (40 mg) Tablet Oral daily, Metoprolol Tartrate 1 (25 mg) Tablet Oral daily, Morphine Sulfate 1 Tablet (of 30 mg) Oral q 4 hours, Morphine Sulfate ER 1 Tablet (of 60 mg) Tablet, controlled release Oral b.i.d., Nitroglycerin 1 (0.4 mg) Tablet, sublingual Sublingual PRN, Ofloxacin 1 drop(s) (of 0.3 %) Solution Ophthalmic 6x/d, Protonix 1 (40 mg) Tablet, enteric coated Oral daily, Sertraline HCl 1 (50 mg) Tablet Oral daily, Simvastatin 1 (40 mg) Tablet Oral at bedtime, tiZANidine HCl 1 Tablet (of 4 mg) Oral q for 8 hours PRN, Vitamin D Allergies: Relistor Review of Systems: Constitutional - He is feeling a little better generally, he still has no energy and he has very limited activity. Appetite also is poor. He is eating very little. He has continued to lose weight. He does not have fever or night sweats. ECOG score is 3, ENMT - No sinus congestion/drainage. No mouth sores. No sore throat or difficulty swallowing, Hematologic/Lymphatic - No abnormal bruising or bleeding, Respiratory - He is short of breath with activity and he also is having cough. No pleuritic pain or hemoptysis, Cardiovascular - No angina pain. No palpitations, Gastrointestinal - He continues to have abdominal pain, which is about the same. He occasionally has nausea and he has been having heartburn. No diarrhea or constipation. No blood in the stool or black stools, Genitourinary (M) - No dysuria or hematuria. No urinary frequency. No urgency or incontinence, Musculoskeletal - He also has pain in his back and legs, Integumentary - No skin rash, Neurologic - No headache. He has dizziness. He has some numbness in his right leg. No other focal neurologic symptoms, Psychiatric - He has anxiety and depression. He has difficulty sleeping. Vital Signs: Performed on Jul 26, 2020 14:04 Height - 67.00 in Weight - 162.0 lbs (LOW) BSA - 1.85 sq.m BMI - 25.37 Temperature - 98.1 F (LOW) Pulse - 53 /min (LOW) Respiration - 16 /min BP - 128/72 mm(hg) O2 Sat - 98 % Pain - 0 Physical Examination: Constitutional - He appears generally weak and chronically ill, Eyes - Sclerae nonicteric. Conjunctivae clear, ENMT - No lesions noted in the oral cavity, Hematologic/Lymphatic - No cervical, clavicular, or axillary adenopathy, Respiratory - Lungs are clear with diminished air movement bilaterally, Cardiovascular - Heart rhythm is regular. There is a II/ systolic murmur. There is no gallop or rub noted, Abdomen - Mildly distended. Liver is not overtly enlarged. Spleen is not palpable. There is no abdominal mass noted. He does not have obvious ascites. There is no inguinal adenopathy noted, Extremities - No edema, Neurologic - No focal neurologic deficits noted. Lab/Imaging: Test performed on Jul 26, 2020 13:04 Sodium 136 mmol/L TSH 2.81 uIU/mL Potassium 4.2 mmol/L Chloride 104 mmol/L CO2 22 mmol/L Anion Gap 14.2 BUN 13 mg/dL Creatinine 0.6 mg/dL Cr Clearance (Est) 139.48 mL/min eGFR 138.4 mL/min Glucose 108 mg/dL Osmolality - Calculated 283 mOsm/kg Calcium 8.7 mg/dL Protein, Total 7.7 g/dL Albumin 3.4 g/dL Globulin 4.3 g/dL Bilirubin, Total 0.5 mg/dL ALT (SGPT) 27 U/L AST (SGOT) 48 U/L Alkaline Phosphatase 180 IU/L WBC 5.7 10 3/uL RBC 4.33 10 6/uL HGB 12.0 g/dL HCT 38.4 % MCV 88.7 fL MCH 27.7 pg MCHC 31.3 g/dL RDW 19.4 % Platelet Count 94 10 3/cmm MPV 13.1 fL Neutrophils 3.48 10 3/uL Lymphocytes 1.1 10 3/uL Monocytes 0.7 10 3/uL Eosinophils 0.2 10 3/uL Basophils 0.1 10 3/uL Neutrophil % 61.1 % Lymphocyte % 19.7 % Monocyte % 13.0 % Eosinophil % 3.3 % Basophils % 2.5 % NRBC % 0 % CBC Slide Review Slide Review Perform SLIDE REVIEW AGREES WITH AUTOMATED PLT CT Impression: 1. Patient with CT evidence of left lateral hepatic lobe lesion, ultimately confirmed by biopsy to be well differentiated hepatocellular carcinoma. 2. 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 3. He is having severe abdominal pain. 4. He has known liver cirrhosis, presumed alcohol related. 5. He was treated for hepatitis C in 2017. 6. He has history of chronic pancreatitis. His other medical illnesses include: 7. Hypertension. 8. GERD. 9. COPD. 10. He has permanent pacemaker for symptomatic bradycardia. 11. 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 He began cycle 1 of palliative chemotherapy with gemcitabine/cisplatin on 06/08/2020. His cycle 1 day 8 treatment was held due to neutropenia. He continued with cycle 2 on 06/22/2020, and he did receive a dose reduction with that cycle. His restaging CT abdomen/pelvis on 07/11/2020 unfortunately showed further disease progression. As such, he was advised against any further chemotherapy. He was given the option of a trial of second line immunotherapy versus transitioning to symptomatic/supportive care. At this point he continues to have very marginal performance status, but he has indicated that he is motivated to continue further treatment. Plan: He will begin a trial of second line immunotherapy with nivolumab 240 mg by IV infusion. I reviewed potential side effects, primarily a risk for immune related toxicities which may include gastroenteritis, pneumonitis, and endocrinopathies, among others. He will be scheduled for a follow-up visit in 2 weeks. Signed By: Fredi Armas M.D. <<Signature on File>>
== END 2020-07-31 23:59 | disposition home or self-care (01) ==
LOC: ONCMED 08:08
PROVIDERS: PCP Registered Nurse; Visit Provider Internal Medicine Medical Oncology
DX: Z51.12 Encounter for antineoplastic immunotherapy (principal); C22.1 Intrahepatic bile duct carcinoma; D69.59 Other secondary thrombocytopenia; I10 Essential (primary) hypertension; J44.9 Chronic obstructive pulmonary disease, unspecified; K21.9 Gastro-esophageal reflux disease without esophagitis; R10.84 Generalized abdominal pain; K70.30 Alcoholic cirrhosis of liver without ascites; R00.1 Bradycardia, unspecified; Z79.899 Other long term (current) drug therapy; Z86.19 Personal history of other infectious and parasitic diseases; Z86.39 Personal history of other endocrine, nutritional and metabolic disease; Z94.7 Corneal transplant status; Z95.0 Presence of cardiac pacemaker
CPT/HCPCS: 74177; 80053; 84443; 85025; 96413; 99214; J7050; J9299; Q9967

== ENCOUNTER 2020-08-22 05:41 | Outpatient (RCR) | payer MEDICAID, SELFPAY ==
[2020-08-09 11:01] LABS: Basophils # 0.1 10^3/uL (0.0-0.1); Basophils % 1.5 %; Eosinophils # 0.4 10^3/uL (0.0-0.8); Eosinophils % 5.9 %; Hematocrit 38.9 % (42.0-52.0); Hemoglobin 12.5 g/dL (11.7-16.6); Lymphocytes # 1.1 10^3/uL (0.8-4.8); Lymphocytes % 15.1 %; Mean Corpuscular HGB Conc 32.1 g/dL (30.0-36.0); Mean Corpuscular Hemoglobin 28.5 pg (28.0-34.0); Mean Corpuscular Volume 88.6 fL (80-94); Mean Platelet Volume 11.9 fL (7.4-10.4); Monocytes # 0.7 10^3/uL (0.2-0.9); Monocytes % 9.1 %; Neutrophils # 4.88 10^3/uL (1.8-7.7); Nucleated Red Blood Cells % 0 %; Platelet Count 69 10^3/cmm (130-400); Red Blood Count 4.39 10^6/uL (4.1-5.3); Red Cell Distribution Width 18.3 % (12.1-15.1); White Blood Count 7.2 10^3/uL (4.0-10.0)
[2020-08-09 11:23] LABS: Alanine Aminotransferase 46 U/L (0-41); Albumin Level 3.4 g/dL (3.5-5.2); Alkaline Phosphatase 160 IU/L (40-130); Anion Gap 14.9 (5-19); Aspartate Amino Transferase 84 U/L (0-40); Blood Urea Nitrogen 18 mg/dL (6-20); Calcium 9.2 mg/dL (8.5-10.5); Carbon Dioxide 20 mmol/L (22-29); Chloride 104 mmol/L (98-107); Glomerular Filtration Rate 115.8 mL/min (90-130); Glucose 107 mg/dL (65-115); Osmolality Calculated 282 mOsm/kg (285-295); Potassium 3.9 mmol/L (3.5-5.1); Sodium 135 mmol/L (136-145); Total Bilirubin 0.5 mg/dL (0.15-1.2); Total Protein 8.4 g/dL (6.6-8.7)
[2020-08-09] MEDS: sodium chloride 0.9% 250 ML 75 ML IV (12:22)
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
[2020-08-22 10:10] LABS: Basophils # 0.1 10^3/uL (0.0-0.1); Basophils % 1.7 %; Eosinophils # 0.3 10^3/uL (0.0-0.8); Hematocrit 38.5 % (42.0-52.0); Hemoglobin 12.2 g/dL (11.7-16.6); Lymphocytes # 1.5 10^3/uL (0.8-4.8); Lymphocytes % 21.1 %; Mean Corpuscular HGB Conc 31.7 g/dL (30.0-36.0); Mean Corpuscular Volume 91.4 fL (80-94); Mean Platelet Volume 11.7 fL (7.4-10.4); Monocytes # 0.6 10^3/uL (0.2-0.9); Monocytes % 7.8 %; Neutrophils # 4.66 10^3/uL (1.8-7.7); Nucleated Red Blood Cells % 0 %; Platelet Count 74 10^3/cmm (130-400); Red Blood Count 4.21 10^6/uL (4.1-5.3); White Blood Count 7.2 10^3/uL (4.0-10.0)
[2020-08-22 10:41] LABS: Alanine Aminotransferase 52 U/L (0-41); Albumin Level 3.7 g/dL (3.5-5.2); Alkaline Phosphatase 146 IU/L (40-130); Anion Gap 12.6 (5-19); Aspartate Amino Transferase 62 U/L (0-40); Blood Urea Nitrogen 16 mg/dL (6-20); Calcium 9.3 mg/dL (8.5-10.5); Carbon Dioxide 24 mmol/L (22-29); Chloride 103 mmol/L (98-107); Globulin 4.4 g/dL (1.3-4.6); Glomerular Filtration Rate 138.4 mL/min (90-130); Glucose 99 mg/dL (65-115); Osmolality Calculated 281 mOsm/kg (285-295); Potassium 4.6 mmol/L (3.5-5.1); Sodium 135 mmol/L (136-145); Thyroid Stimulating Hormone 5.07 uIU/mL (0.27-4.20); Total Bilirubin 0.5 mg/dL (0.15-1.2); Total Protein 8.1 g/dL (6.6-8.7)
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
== END 2020-08-31 23:59 | disposition home or self-care (01) ==
LOC: ONCMED 05:41
PROVIDERS: PCP Registered Nurse; Visit Provider Nurse Practitioner
DX: Z51.12 Encounter for antineoplastic immunotherapy (principal); C22.1 Intrahepatic bile duct carcinoma; D69.59 Other secondary thrombocytopenia; I10 Essential (primary) hypertension; E78.5 Hyperlipidemia, unspecified; K21.9 Gastro-esophageal reflux disease without esophagitis; J44.9 Chronic obstructive pulmonary disease, unspecified; F17.210 Nicotine dependence, cigarettes, uncomplicated; F10.20 Alcohol dependence, uncomplicated; R00.1 Bradycardia, unspecified; Z95.0 Presence of cardiac pacemaker; Z94.7 Corneal transplant status
CPT/HCPCS: 80053; 84443; 85025; 96413; 99214; J7050; J9299

== ENCOUNTER 2020-09-04 13:41 | Outpatient (CLI) | payer MEDICAID, SELFPAY ==
--- NOTE | 2020-09-04 13:53 | CT_ITS ---
WS: [id number] CT CHEST, ABDOMEN, AND PELVIS TECHNIQUE: Contrast-enhanced CT of the chest, abdomen, and pelvis with coronal and sagittal reformatt ed images. CLINICAL INFORMATION: HEPATOCELLULAR CANCER, RESTAGING PANCREATIC CANCER POST IMMU COMPARISON: CT July 11, 2020 March 15, 2020 September 20, 2019 and DLP: 2406.[address] scans at [facility] use at least one of these dose optimization techniques: automat ed exposure control; mA and/or kV adjustment per patient size (includes targeted exams where dose is matched to clinical indication); or iterative reconstruction. CT CHEST: Both lungs are well aerated. Mild chronic emphysematous changes. No acute pulmonary infiltrates. No s uspicious pulmonary parenchymal opacities. No mediastinal or hilar lymphadenopathy. Aortic calcificat ion. No axillary lymphadenopathy. A few prominent anterior mediastinal lymph nodes measuring up to 7 mm. No pathologic lymphadenopathy. CT ABDOMEN AND PELVIS: Hepatomegaly. Diffuse fatty infiltration of the liver. Heterogeneous low-attenuation enhancement in l eft hepatic lobe compatible with history of hepatocellular carcinoma. This does not appear significan tly changed since July 11, 2020. This measures approximately 6.9 x 7.3 CM. Overall more low-atten uation change today likely due to treatment effect. No new hepatic lesions. Portal vein and splenic v ein are patent. Normal pancreas. Normal spleen. Small splenules. Stable low-attenuation lesion in the pancreas measuring 6 mm likely pancreatic cyst or small IPMN. Stable nodularity left adrenal gland. Prominent lymphadenopathy upper and central abdomen the largest along the celiac axis measuring 2.9 x 2.4 cm unchanged. Enlarged lymph nodes along the SMA. Enlarged peripancreatic and ruy hepatis lym ph nodes. Enlarged periaortic and aortocaval lymph nodes. Overall these are relatively stable in appe arance compared to previous. Cholecystectomy. No pelvic or inguinal lymphadenopathy. Adrenal glands are normal. Normal renal paren chymal enhancement. No hydronephrosis. A few simple renal cysts. No evidence of small or large bowel obstruction. Previously described focal sclerosis T10 vertebral b audrey is unchanged. CT/CT chest abd pel w con* IMPRESSION: 1. No evidence of progressed metastatic disease in the chest abdomen or pelvis . 2. Stable left hepatic lesion consistent with hepatocellular carcinoma. This i s similar in appearance to the prior examination. 3. Stable lymphadenopathy in the upper abdomen along the celiac axis and SMA. Enlarged ruy hepatis lymph nodes. Enlarged peripancreatic and aortocaval lymp h nodes are not significantly changed. 4. Stable sclerotic focus in T10 vertebral body.
[2020-09-04] MEDS: iohexol 300 mg/mL 50 mL Btl PO (14:07)
[2020-09-04] MEDS: iohexol 300 mg/mL 100 mL Btl IV (15:17)
== END 2020-09-04 13:42 | disposition home or self-care (01) ==
LOC: RADWPI 13:45
PROVIDERS: PCP Registered Nurse; Visit Provider Nurse Practitioner
DX: C25.9 Malignant neoplasm of pancreas, unspecified (principal); R59.0 Localized enlarged lymph nodes; K76.9 Liver disease, unspecified
CPT/HCPCS: 71260; 74177; Q9967

== ENCOUNTER 2020-09-19 05:35 | Outpatient (RCR) | payer MEDICAID, SELFPAY ==
[2020-09-04 14:19] LABS: Basophils # 0.1 10^3/uL (0.0-0.1); Basophils % 1.2 %; Eosinophils # 0.2 10^3/uL (0.0-0.8); Eosinophils % 3.1 %; Hematocrit 40.5 % (42.0-52.0); Hemoglobin 12.7 g/dL (11.7-16.6); Lymphocytes # 1.5 10^3/uL (0.8-4.8); Lymphocytes % 19.1 %; Mean Corpuscular HGB Conc 31.4 g/dL (30.0-36.0); Mean Corpuscular Hemoglobin 28.7 pg (28.0-34.0); Mean Corpuscular Volume 91.4 fL (80-94); Mean Platelet Volume 12.6 fL (7.4-10.4); Monocytes # 0.4 10^3/uL (0.2-0.9); Monocytes % 5.7 %; Neutrophils # 5.48 10^3/uL (1.8-7.7); Neutrophils % 70.6 %; Nucleated Red Blood Cells % 0 %; Platelet Count 88 10^3/cmm (130-400); Red Blood Count 4.43 10^6/uL (4.1-5.3); Red Cell Distribution Width 15.5 % (12.1-15.1); White Blood Count 7.8 10^3/uL (4.0-10.0)
[2020-09-04 14:33] LABS: Alanine Aminotransferase 50 U/L (0-41); Albumin Level 3.7 g/dL (3.5-5.2); Alkaline Phosphatase 133 IU/L (40-130); Aspartate Amino Transferase 61 U/L (0-40); Blood Urea Nitrogen 14 mg/dL (6-20); Calcium 9.2 mg/dL (8.5-10.5); Carbon Dioxide 21 mmol/L (22-29); Chloride 102 mmol/L (98-107); Free T4 Free Thyroxine 1.39 ng/dL (0.82-1.77); Globulin 4.2 g/dL (1.3-4.6); Glomerular Filtration Rate 115.8 mL/min (90-130); Glucose 124 mg/dL (65-115); Osmolality Calculated 278 mOsm/kg (285-295); Sodium 133 mmol/L (136-145); Thyroid Stimulating Hormone 3.74 uIU/mL (0.27-4.20); Total Bilirubin 0.7 mg/dL (0.15-1.2); Total Protein 7.9 g/dL (6.6-8.7)
[2020-09-05] MEDS: sodium chloride 0.9% 250 ML 75 ML IV (10:36)
--- NOTE | 2020-09-09 11:32 | ONC FU_ITS ---
Dr. Armas Patient Follow-Up Note Patient: Say Cardenas Unit #: [id number]: [id number] Dicatated By: Fredi Armas M.D.Date of Visit:Sep 05, 2020 Onc Med Follow-up/Prog Note Chief Complaint: Hepatocelluar carcinoma. History of Present Illness: This is a 60 year-old man with hepatocellular carcinoma. 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 He has had chronic pancreatitis. On 05/02/2019 he was admitted to the hospital after presenting to the emergency room with abdominal pain and vomiting. His initial CT abdomen/pelvis showed multiple dilated loops of proximal small bowel with scattered air-fluid levels, concerning for early small bowel obstruction. There were findings of cirrhosis and mild splenomegaly. His symptoms improved with conservative management. His repeat CT abdomen/pelvis on 05/06/2019 showed resolution of the small bowel distention. The pancreas appeared normal. That study, however, did show development of a left hepatic lobe lateral segment space-occupying lesion which was new from a prior study in October 2017. It measured approximately 1.5 cm. His laboratory studies during that time included an AFP level which was elevated at 26.9 ng/mL. His serum lipase was mildly elevated at 131/60 U/L. I had seen him initially on 05/18/2019. He was not able to have the hepatic lesion evaluated by MRI due to his having a pacemaker. We discussed the possibility of referral to a tertiary facility for further evaluation versus continuing follow-up here with close observation. Given his multiple underlying medical illnesses, he opted for the latter. His repeat CT abdomen/pelvis on 06/29/2019 showed hypodense mass in the lateral segment of the left lobe of the liver measuring 2.3 x 1.7 x 2.8 cm. It did not appear significantly changed from the prior CT scan. Repeat CT abdomen/pelvis on 09/28/2019 showed indeterminate lesion in the left lobe of the liver measuring 1.64 x 2.62 x 3.41 cm, unchanged from the previous study. It did appear to show peripheral enhancement, consistent with hemangioma or focal fat infiltration. Liver abscess, metastatic lesion, or primary liver tumor were felt to be less likely. There were no other acute findings and no other changes noted. He continued observation/symptomatic management. He had repeat CT abdomen/pelvis again on 03/15/2020. It showed significant enlargement of the lesion in the left lobe of the liver, measuring 3.46 x 4.04 x 4.91 cm. The liver also showed some changes compatible with cirrhosis. There was no evidence of metastatic disease. Biopsy of the liver lesion on 04/07/2020 showed well-differentiated hepatocellular carcinoma. With that finding he was referred to [facility] for further management. His further imaging revealed bulky gastrohepatic ligament lymphadenopathy measuring 3.7 cm. Also noted was an enlarged periportal lymph node measuring 1.9 cm and additional retroperitoneal lymphadenopathy. 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 With that finding, the recommended treatment was palliative chemotherapy with gemcitabine/cisplatin and with possible addition of durvalumab. His other medical illnesses include hypertension, hyperlipidemia, GERD, and COPD. He has a history of smoking 1 pack of cigarettes daily for 40 years. He has a history of heavy alcohol use. He had most recently quit again in April 2019. INTERIM HISTORY: He began cycle 1 of gemcitabine/cisplatin on 06/08/2020. He was able to tolerated without acute toxicity, but his day 8 treatment was held due to neutropenia. He continued with cycle 2 on 06/22/2020, he did receive a dose reduction. Restaging CT of the abdomen/pelvis on 07/11/2020 showed enlarging lesion in the left lobe of the liver along with enlarged mid abdominal lymph nodes. There was questionable sclerotic metastasis in the anterior aspect of the T10 vertebral body. Overall, findings were consistent with disease progression. He had previously been notified of the CT findings. Given his very poor performance status, we had discussed the possibility continuing further treatment with a trial of second line immunotherapy versus transitioning to symptomatic/supportive care. He was motivated to continue treatment, and on 07/26/2020 he began a trial of therapy with nivolumab at 240 mg by IV infusion every 2 weeks. Thus far he has been able to tolerate it with no apparent toxicity. He is seen now for a scheduled visit. He says he sometimes feels good and sometimes bad. Overall, he has poor energy and very limited activity. His ECOG score is 3. He feels that his pain has been getting a little worse. It currently is being managed with extended release morphine 60 mg every 12 hours with MSIR 30 mg as needed. Appetite is not very good, but his weight is stable. He has no fever or night sweats. He does not complain of shortness of breath, cough, or chest pain. He continues to have significant abdominal pain, but no nausea. He does have ongoing problems with constipation. Bladder function remains adequate, though he does tend to start and stop. He also has lower back pain. He has headaches off and on. He has no focal neurologic symptoms. Medications: artifical tears 1 Drop(s) Solution Ophthalmic PRN, Aspirin 1 (81 mg) Tablet Oral daily, Eliquis 1 Tablet (of 5 mg) Oral daily, Lisinopril 1 (20 mg) Tablet Oral daily, Metoprolol Tartrate 1 (25 mg) Tablet Oral daily, Morphine Sulfate 1 Tablet (of 30 mg) Oral q 4 hours, Morphine Sulfate ER 1 Tablet (of 100 mg) Tablet, controlled release Oral b.i.d., Nitroglycerin 1 (0.4 mg) Tablet, sublingual Sublingual PRN, Ofloxacin 1 drop(s) (of 0.3 %) Solution Ophthalmic 6x/d, Protonix 1 (40 mg) Tablet, enteric coated Oral daily, Sertraline HCl 1 (100 mg) Tablet Oral daily, Simvastatin 1 (40 mg) Tablet Oral at bedtime, tiZANidine HCl 1 Tablet (of 4 mg) Oral q for 8 hours PRN, Vitamin D Allergies: Relistor Vital Signs: Performed on Sep 05, 2020 09:47 Height - 67.00 in Weight - 168.6 lbs (HIGH) BSA - 1.88 sq.m BMI - 26.41 Temperature - 98.6 F Pulse - 78 /min Respiration - 17 /min BP - 122/68 mm(hg) O2 Sat - 97 % Pain - 7 Physical Examination: Constitutional - He appears generally weak and chronically ill, Eyes - Sclerae nonicteric. Conjunctivae clear, ENMT - No lesions noted in the oral cavity, Hematologic/Lymphatic - No cervical, clavicular, or axillary adenopathy, Respiratory - Lungs are clear with diminished air movement bilaterally, Cardiovascular - Heart rhythm is regular. There is a II/ systolic murmur. There is no gallop or rub noted, Abdomen - Mildly distended. Liver is not overtly enlarged. Spleen is not palpable. There is no abdominal mass noted. He does not have obvious ascites. There is no inguinal adenopathy noted, Extremities - No edema, Neurologic - No focal neurologic deficits noted. Lab/Imaging: CBC shows hemoglobin 12.7g, white blood cell count 7800, and platelet count 88,000. Comprehensive metabolic profile shows normal renal function with BUN 14 and creatinine 0.7 mg/dL. Liver enzymes remain mildly elevated and stable. Bilirubin is in normal range at 0.7 mg/dL. Historic Problem List: 1. Well-differentiated hepatocellular carcinoma, confirmed by liver biopsy on 04/07/2020. 2. 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 3. He is having severe abdominal pain. 4. He has known liver cirrhosis, presumed alcohol related. 5. He was treated for hepatitis C in 2017. 6. He has history of chronic pancreatitis. His other medical illnesses include: 7. Hypertension. 8. GERD. 9. COPD. 10. He has permanent pacemaker for symptomatic bradycardia. 11. 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 He began cycle 1 of palliative chemotherapy with gemcitabine/cisplatin on 06/08/2020. His cycle 1 day 8 treatment was held due to neutropenia. He continued with cycle 2 on 06/22/2020, and he did receive a dose reduction with that cycle. His restaging CT abdomen/pelvis on 07/11/2020 unfortunately showed further disease progression. As such, he was advised against any further chemotherapy. He was given the option of a trial of second line immunotherapy versus transitioning to symptomatic/supportive care. At this point he continues to have very marginal performance status, but he has indicated that he is motivated to continue further treatment. Problems Addressed with this Encounter and Plan: 1. 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 He failed an initial trial of systemic therapy with cisplatin/gemcitabine chemotherapy. At that point he was still motivated to continue treatment. On 07/26/2020 he began a trial of second line immunotherapy with nivolumab. His disease appears to be stable by restaging CT on 09/04/2020. As such, he will continue with cycle 4 of nivolumab 240 mg by IV infusion. Thus far he has tolerated the nivolumab without significant side effects, but it is a treatment that has the potential to cause significant toxicity, and it does require close monitoring. He returns for treatment again in 2 weeks and for a follow-up visit in 4 weeks. 2. He has significant cancer related pain. It is not being managed adequately with his current medication regimen. As such, will increase the extended release morphine dosage to 100 mg every 12 hours. He will continue MSIR 30 mg up to 4 times daily as needed for breakthrough pain. 3. Hypertension. His blood pressure now is a little soft, so we will have him reduce the lisinopril dosage to 20 mg daily. 4. Anxiety/depression. He has been on treatment with sertraline, but he feels that his depression is not being managed adequately at the current dosage. As such, it will be increased to 100 mg daily. Signed By: Fredi Armas M.D. <<Signature on File>>
[2020-09-19] MEDS: sodium chloride 0.9% 250 ML 75 ML IV (11:20)
== END 2020-10-01 23:59 | disposition home or self-care (01) ==
LOC: ONCMED 05:35
PROVIDERS: Nurse Practitioner; PCP Registered Nurse; Visit Provider Internal Medicine Medical Oncology
DX: Z51.12 Encounter for antineoplastic immunotherapy (principal); C22.1 Intrahepatic bile duct carcinoma; D69.59 Other secondary thrombocytopenia; R93.2 Abnormal findings on diagnostic imaging of liver and biliary tract; K70.30 Alcoholic cirrhosis of liver without ascites; K86.0 Alcohol-induced chronic pancreatitis; I10 Essential (primary) hypertension; K21.9 Gastro-esophageal reflux disease without esophagitis; J44.9 Chronic obstructive pulmonary disease, unspecified; R00.1 Bradycardia, unspecified; Z95.0 Presence of cardiac pacemaker; Z94.7 Corneal transplant status; Z86.19 Personal history of other infectious and parasitic diseases
CPT/HCPCS: 36415; 80053; 84439; 84443; 85025; 96413; 99215; J7050; J9299

== ENCOUNTER 2020-10-24 05:26 | Outpatient (RCR) | payer MEDICAID, SELFPAY ==
[2020-10-03 09:47] LABS: Basophils # 0.1 10^3/uL (0.0-0.1); Basophils % 1.2 %; Eosinophils # 0.1 10^3/uL (0.0-0.8); Eosinophils % 1.9 %; Hematocrit 36.5 % (42.0-52.0); Hemoglobin 11.3 g/dL (11.7-16.6); Lymphocytes # 1.1 10^3/uL (0.8-4.8); Lymphocytes % 15.8 %; Mean Corpuscular Hemoglobin 27.7 pg (28.0-34.0); Mean Corpuscular Volume 89.5 fL (80-94); Mean Platelet Volume 12.9 fL (7.4-10.4); Monocytes # 0.7 10^3/uL (0.2-0.9); Monocytes % 9.7 %; Neutrophils # 4.93 10^3/uL (1.8-7.7); Neutrophils % 71.1 %; Nucleated Red Blood Cells % 0 %; Platelet Count 72 10^3/cmm (130-400); Red Blood Count 4.08 10^6/uL (4.1-5.3); Red Cell Distribution Width 14.8 % (12.1-15.1); White Blood Count 6.9 10^3/uL (4.0-10.0)
[2020-10-03 10:44] LABS: Alanine Aminotransferase 39 U/L (0-41); Albumin Level 3.7 g/dL (3.5-5.2); Alkaline Phosphatase 161 IU/L (40-130); Anion Gap 13.1 (5-19); Aspartate Amino Transferase 47 U/L (0-40); Blood Urea Nitrogen 12 mg/dL (6-20); Calcium 9.1 mg/dL (8.5-10.5); Carbon Dioxide 24 mmol/L (22-29); Chloride 104 mmol/L (98-107); Globulin 3.8 g/dL (1.3-4.6); Glomerular Filtration Rate 138.4 mL/min (90-130); Glucose 118 mg/dL (65-115); Osmolality Calculated 285 mOsm/kg (285-295); Potassium 4.1 mmol/L (3.5-5.1); Sodium 137 mmol/L (136-145); Thyroid Stimulating Hormone 4.38 uIU/mL (0.27-4.20); Total Bilirubin 0.4 mg/dL (0.15-1.2); Total Protein 7.5 g/dL (6.6-8.7)
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
== END 2020-10-29 23:59 | disposition home or self-care (01) ==
LOC: ONCMED 05:26
PROVIDERS: Nurse Practitioner; PCP Registered Nurse; Visit Provider Internal Medicine Medical Oncology
DX: Z51.12 Encounter for antineoplastic immunotherapy (principal); C22.1 Intrahepatic bile duct carcinoma; D69.6 Thrombocytopenia, unspecified; R10.84 Generalized abdominal pain; K70.30 Alcoholic cirrhosis of liver without ascites; Z86.19 Personal history of other infectious and parasitic diseases; K86.0 Alcohol-induced chronic pancreatitis; I10 Essential (primary) hypertension; K21.9 Gastro-esophageal reflux disease without esophagitis; J44.9 Chronic obstructive pulmonary disease, unspecified; R00.1 Bradycardia, unspecified; Z95.0 Presence of cardiac pacemaker; Z94.7 Corneal transplant status
CPT/HCPCS: 80053; 84443; 85025; 96413; 99214; J7050; J9299

== ENCOUNTER 2020-11-20 13:40 | Outpatient (CLI) | payer MEDICAID, SELFPAY ==
--- NOTE | 2020-11-20 13:44 | CT_ITS ---
WS: [id number] CT HEAD WITH AND WITHOUT CONTRAST HISTORY: METASTATIC BILE DUCT CANCER/DIZZINESS/HEADACHES/NAUSEA TECHNIQUE: Noncontrast 2.5 mm axial images obtained from the vertex to the skull base. Additional [place] ging performed at 2.5 mm axial images status post IV contrast. Bone and soft tissue windows are revie wed. All CT scans at [facility] use at least one of these dose optimization techniques: a utomated exposure control; mA and/or kV adjustment per patient size (includes targeted exams where do se is matched to clinical indication); or iterative reconstruction. CONTRAST: Omnipaque 300; 95 mL IV. DLP: 1406.62 mGy.cm COMPARISON: 05/06/2015 No acute intracranial hemorrhage, edema or midline shift. No enhancing mass or vascular malformations identified. Dural venous sinuses are normally enhancing. No occlusion of the [place] of [place]. Mild paucity of vessels in the distal LEFT MCA territory. No in farct. This may be a normal variant. Paranasal sinuses as visualized: Clear. Mastoid air cells: Clear. Calvarium and scalp: Intact. CT/CT head wo/w con [id number] IMPRESSION: 1. No acute intracranial hemorrhage or edema. 2. No enhancing masses. 3. Paucity of vessels in the distal LEFT MCA territory may be normal variant. No associated infarcts.
[2020-11-20] MEDS: iohexol 300 mg/mL 100 mL Btl IV (14:22)
== END 2020-11-20 13:41 | disposition home or self-care (01) ==
LOC: RAD 13:42
PROVIDERS: PCP Registered Nurse; Visit Provider Nurse Practitioner
DX: R42 Dizziness and giddiness (principal); R51.9 Headache, unspecified; R11.0 Nausea; C76.8 Malignant neoplasm of other specified ill-defined sites
CPT/HCPCS: 70470

== ENCOUNTER 2020-11-29 14:30 | Outpatient (RCR) | payer MEDICAID, SELFPAY ==
[2020-11-07 08:51] LABS: Basophils # 0.1 10^3/uL (0.0-0.1); Basophils % 0.7 %; Eosinophils # 0.1 10^3/uL (0.0-0.8); Eosinophils % 1.4 %; Hematocrit 36.3 % (42.0-52.0); Hemoglobin 11.2 g/dL (11.7-16.6); Lymphocytes # 0.9 10^3/uL (0.8-4.8); Lymphocytes % 10.2 %; Mean Corpuscular HGB Conc 30.9 g/dL (30.0-36.0); Mean Corpuscular Hemoglobin 25.9 pg (28.0-34.0); Mean Corpuscular Volume 83.8 fL (80-94); Mean Platelet Volume 12.4 fL (7.4-10.4); Monocytes # 0.6 10^3/uL (0.2-0.9); Monocytes % 7.5 %; Neutrophils % 79.7 %; Nucleated Red Blood Cells % 0 %; Platelet Count 96 10^3/cmm (130-400); Red Blood Count 4.33 10^6/uL (4.1-5.3); Red Cell Distribution Width 15.9 % (12.1-15.1); White Blood Count 8.5 10^3/uL (4.0-10.0)
[2020-11-07 09:29] LABS: Alanine Aminotransferase 52 U/L (0-41); Albumin Level 3.7 g/dL (3.5-5.2); Alkaline Phosphatase 148 IU/L (40-130); Anion Gap 13.1 (5-19); Aspartate Amino Transferase 67 U/L (0-40); Blood Urea Nitrogen 21 mg/dL (6-20); Carbon Dioxide 23 mmol/L (22-29); Chloride 103 mmol/L (98-107); Globulin 4.4 g/dL (1.3-4.6); Glomerular Filtration Rate 99.3 mL/min (90-130); Glucose 121 mg/dL (65-115); Osmolality Calculated 284 mOsm/kg (285-295); Potassium 4.1 mmol/L (3.5-5.1); Sodium 135 mmol/L (136-145); Thyroid Stimulating Hormone 2.76 uIU/mL (0.27-4.20); Total Bilirubin 0.6 mg/dL (0.15-1.2); Total Protein 8.1 g/dL (6.6-8.7)
[2020-11-07] MEDS: famotidine 20 mg/2 mL INJ IVP (10:50)
[2020-11-07] MEDS: sodium chloride 0.9% 1,000 ML 999 ML IV (10:55)
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
--- NOTE | 2020-11-29 13:00 | CT_ITS ---
WS: [id number] CT CHEST, ABDOMEN, AND PELVIS TECHNIQUE: Contrast-enhanced CT of the chest, abdomen, and pelvis with coronal and sagittal reformatt ed images. CLINICAL INFORMATION: INTRAHEPATIC BILE DUCT CANCER, LUQ PAIN, ELEVATED LFT'S COMPARISON: CT chest abdomen pelvis September 04, 2020. CT abdomen pelvis 07/11/2020 and 03/15/2020. DLP: 2391.[address] scans at [facility] use at least one of these dose optimization techniques: automat ed exposure control; mA and/or kV adjustment per patient size (includes targeted exams where dose is matched to clinical indication); or iterative reconstruction. CT CHEST: New progressed bulky lymphadenopathy visualized at the thoracic inlet and left anterior mediastinum l argest measuring 2.2 cm. Additional partially visualized enlarged lymph nodes in the lower left neck and infraclavicular at the thoracic inlet. New enlarged left axillary lymph node measuring 1.3 CM. Ne w subcarinal lymphadenopathy. This measures 16 mm. Additional numerous slightly prominent anterior me diastinal lymph nodes and peribronchial lymph nodes are progressed from previous. Additional enlarged lymph node along the pericardium anteriorly progressed. Mild chronic emphysematous changes. No suspi cious pulmonary parenchymal abnormalities. No focal pneumonia or pleural fluid. CT ABDOMEN AND PELVIS: Evidence of progressed metastatic disease in the liver. Heterogeneous enhancement involving the left hepatic lobe has progressed with numerous new peripheral enhancing lesions along the lateral segment left hepatic lobe. Additional new/progressed nodular lesion involving the medial segment left hepatic lobe measuring 3.6 x 3.3 cm. Additional coarse areas of enhancement involving the right hepatic lobe without a discrete lesion. Portal veins and splenic vein are patent. Small splenule. Progressed bulk y lymphadenopathy with some low-attenuation change at the ruy hepatis and along the central mesente ry. Prior cholecystectomy. Progressed enlarged lymph nodes along the celiac and SMA. Progressed bulky peripancreatic lymph nodes. Progressed bulky periaortic and retroperitoneal lymph nodes. Progressed aortocaval lymph nodes. Normal renal parenchymal enhancement. No hydronephrosis. Normal caliber abdom inal aorta. Progressed adenopathy along the left greater than right proximal common iliac chains. A few enlarged lymph nodes along the left pelvic sidewall. No inguinal lymphadenopathy. Fat-containing right inguina l hernia.Sigmoid diverticulosis. Stable focal sclerosis T10 vertebral body. New lytic lesion L2 vertebral body with slight lytic expan celsa measuring 12 mm. This is most consistent with metastasis. CT/CT chest abd pel w con* IMPRESSION: 1. Evidence of significant progressed disease in the chest abdomen and pelvis compared to previous. 2. Progressed bulky lymphadenopathy in the chest abdomen and pelvis. 3. Progressed left hepatic lesion described above. New/progressed enhancing no dular lesion involving the medial segment left hepatic lobe measuring 3.6 x 3.3 CM. 4. Diffuse heterogeneous enhancement involving the right hepatic lobe without discrete lesion. A few asymmetric areas of enhancement. 5. New lytic metastatic lesion involving the L1 vertebral body anteriorly rock uring 12 mm 6. Stable sclerotic focus T10 vertebral body.
[2020-11-29] MEDS: iohexol 300 mg/mL 50 mL Btl PO (14:24)
[2020-11-29] MEDS: iohexol 300 mg/mL 100 mL Btl IV (14:57)
== END 2020-11-29 23:59 | disposition home or self-care (01) ==
LOC: ONCMED 14:30
PROVIDERS: PCP Registered Nurse; Visit Provider Nurse Practitioner
DX: C22.1 Intrahepatic bile duct carcinoma (principal); D69.59 Other secondary thrombocytopenia; R53.83 Other fatigue; R93.2 Abnormal findings on diagnostic imaging of liver and biliary tract
CPT/HCPCS: 71260; 74177; 80053; 84443; 85025; 96361; 96374; 96375; 99214; J2930; J3490; J7030; Q9967

== ENCOUNTER 2020-12-13 08:21 | Outpatient (RCR) | payer MEDICAID, SELFPAY ==
--- NOTE | 2020-12-13 20:49 | ONC FU_ITS ---
Dr. Armas Patient Follow-Up Note Patient: Say Cardenas Unit #: [id number]: 1960 Dicatated By: Fredi Armas M.D.Date of Visit:Dec 13, 2020 Onc Med Follow-up/Prog Note Chief Complaint: Hepatocelluar carcinoma. History of Present Illness: This is a 60 year-old man with hepatocellular carcinoma. 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 He has had chronic pancreatitis. On 05/02/2019 he was admitted to the hospital after presenting to the emergency room with abdominal pain and vomiting. His initial CT abdomen/pelvis showed multiple dilated loops of proximal small bowel with scattered air-fluid levels, concerning for early small bowel obstruction. There were findings of cirrhosis and mild splenomegaly. His symptoms improved with conservative management. His repeat CT abdomen/pelvis on 05/06/2019 showed resolution of the small bowel distention. The pancreas appeared normal. That study, however, did show development of a left hepatic lobe lateral segment space-occupying lesion which was new from a prior study in October 2017. It measured approximately 1.5 cm. His laboratory studies during that time included an AFP level which was elevated at 26.9 ng/mL. His serum lipase was mildly elevated at 131/60 U/L. I had seen him initially on 05/18/2019. He was not able to have the hepatic lesion evaluated by MRI due to his having a pacemaker. We discussed the possibility of referral to a tertiary facility for further evaluation versus continuing follow-up here with close observation. Given his multiple underlying medical illnesses, he opted for the latter. His repeat CT abdomen/pelvis on 06/29/2019 showed hypodense mass in the lateral segment of the left lobe of the liver measuring 2.3 x 1.7 x 2.8 cm. It did not appear significantly changed from the prior CT scan. Repeat CT abdomen/pelvis on 09/28/2019 showed indeterminate lesion in the left lobe of the liver measuring 1.64 x 2.62 x 3.41 cm, unchanged from the previous study. It did appear to show peripheral enhancement, consistent with hemangioma or focal fat infiltration. Liver abscess, metastatic lesion, or primary liver tumor were felt to be less likely. There were no other acute findings and no other changes noted. He continued observation/symptomatic management. He had repeat CT abdomen/pelvis again on 03/15/2020. It showed significant enlargement of the lesion in the left lobe of the liver, measuring 3.46 x 4.04 x 4.91 cm. The liver also showed some changes compatible with cirrhosis. There was no evidence of metastatic disease. Biopsy of the liver lesion on 04/07/2020 showed well-differentiated hepatocellular carcinoma. With that finding he was referred to [facility] for further management. His further imaging revealed bulky gastrohepatic ligament lymphadenopathy measuring 3.7 cm. Also noted was an enlarged periportal lymph node measuring 1.9 cm and additional retroperitoneal lymphadenopathy. 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 With that finding, the recommended treatment was palliative chemotherapy with gemcitabine/cisplatin and with possible addition of durvalumab. His other medical illnesses include hypertension, hyperlipidemia, GERD, and COPD. He has a history of smoking 1 pack of cigarettes daily for 40 years. He has a history of heavy alcohol use. He had most recently quit again in April 2019. INTERIM HISTORY: He began cycle 1 of gemcitabine/cisplatin on 06/08/2020. He was able to tolerated without acute toxicity, but his day 8 treatment was held due to neutropenia. He continued with cycle 2 on 06/22/2020, he did receive a dose reduction. Restaging CT of the abdomen/pelvis on 07/11/2020 showed enlarging lesion in the left lobe of the liver along with enlarged mid abdominal lymph nodes. There was questionable sclerotic metastasis in the anterior aspect of the T10 vertebral body. Overall, findings were consistent with disease progression. He had previously been notified of the CT findings. Given his very poor performance status, we had discussed the possibility continuing further treatment with a trial of second line immunotherapy versus transitioning to symptomatic/supportive care. He was motivated to continue treatment, and on 07/26/2020 he began a trial of therapy with nivolumab at 240 mg by IV infusion every 2 weeks. He tolerated it with no apparent toxicity, and he was able to continue the treatment at 2-week intervals. As of 10-24-2020 he had completed his 7th cycle of treatment. At his follow-up visit on 11-07-2020 his treatment was put on hold due to increased shortness of breath and cough and concern for possible treatment related pneumonitis. He did feel somewhat better after IV hydration. His restaging CT scans on 11/29/2020 showed new progressed bulky lymphadenopathy at the thoracic inlet and left anterior mediastinum, the largest measuring 2.2 cm. There were additional partially visualized nodes in the lower neck and infraclavicular region at the thoracic inlet. Also noted were numerous slightly prominent anterior mediastinal lymph nodes. Additional lymph nodes were noted along the pericardium anteriorly. There was also progressed bulky peripancreatic, periaortic, and retroperitoneal lymph nodes. There was also progression of metastatic disease in the liver and there was a new lytic lesion at the L2 vertebral body with slight lytic expansion measuring 12 mm. Overall, the findings were consistent with significant disease progression. He is seen for a follow-up visit. He has not been feeling good. He has very limited activity, and is now mostly sedentary. ECOG score is 0. Appetite is not good. He complains that he has no taste, but he does eat. He has not had fever. He has been having some night sweating. He has soreness in the roof of his mouth. He has bad cough, which she attributes to mucus in his throat. The cough, though it is nonproductive. He is short of breath. He had 1 recent episode of chest pain. He does not complain of nausea. He has been having some heartburn, and he has ongoing problems with pain in the mid abdominal area. He has constipation and he sometimes has difficulty voiding. He has musculoskeletal pain, particularly in his arms. He has been having a lot of headache and he also complains of dizziness. He has numbness in his arms and hands. Medications: artifical tears 1 Drop(s) Solution Ophthalmic PRN, Aspirin 1 (81 mg) Tablet Oral daily, Eliquis 1 Tablet (of 5 mg) Oral daily, Lisinopril 1 (20 mg) Tablet Oral daily, Metoprolol Tartrate 1 (25 mg) Tablet Oral daily, Morphine Sulfate 1 Tablet (of 30 mg) Oral q 4 hours, Morphine Sulfate ER 1 Tablet (of 100 mg) Tablet, controlled release Oral b.i.d., Nitroglycerin 1 (0.4 mg) Tablet, sublingual Sublingual PRN, Ofloxacin 1 drop(s) (of 0.3 %) Solution Ophthalmic 6x/d, Protonix 1 (40 mg) Tablet, enteric coated Oral daily, Sertraline HCl 1 (100 mg) Tablet Oral daily, Simvastatin 1 (40 mg) Tablet Oral at bedtime, tiZANidine HCl 1 Tablet (of 4 mg) Oral q for 8 hours PRN, Vitamin D Allergies: Relistor Vital Signs: Performed on Dec 13, 2020 09:16 Height - 67.00 in Weight - 175.8 lbs (LOW) BSA - 1.91 sq.m BMI - 27.53 Temperature - 98.6 F Pulse - 78 /min Respiration - 18 /min BP - 132/70 mm(hg) O2 Sat - 98 % Pain - 8 Fatigue - 9 Physical Examination: Constitutional - He appears generally weak, Eyes - Sclerae nonicteric. Conjunctivae clear, ENMT - No lesions noted in the oral cavity, Hematologic/Lymphatic - No cervical, clavicular, or axillary adenopathy, Respiratory - Lungs are clear with diminished air movement bilaterally, Cardiovascular - Heart rhythm is regular. There is a II/ systolic murmur. There is no gallop or rub noted, Abdomen - Moderately distended but soft. There may be some ascites. Liver is not overtly enlarged. Spleen is not palpable. There is no abdominal mass noted. There is no inguinal adenopathy noted, Extremities - No edema, Neurologic - No focal neurologic deficits noted. Lab/Imaging: Test performed on Nov 07, 2020 08:25 Sodium 135 mmol/L TSH 2.76 uIU/mL Potassium 4.1 mmol/L Chloride 103 mmol/L CO2 23 mmol/L Anion Gap 13.1 BUN 21 mg/dL Creatinine 0.8 mg/dL Cr Clearance (Est) 114.30 mL/min eGFR 99.3 mL/min Glucose 121 mg/dL Osmolality - Calculated 284 mOsm/kg Calcium 9.0 mg/dL Protein, Total 8.1 g/dL Albumin 3.7 g/dL Globulin 4.4 g/dL Bilirubin, Total 0.6 mg/dL ALT (SGPT) 52 U/L AST (SGOT) 67 U/L Alkaline Phosphatase 148 IU/L WBC 8.5 10 3/uL RBC 4.33 10 6/uL HGB 11.2 g/dL HCT 36.3 % MCV 83.8 fL MCH 25.9 pg MCHC 30.9 g/dL RDW 15.9 % Platelet Count 96 10 3/cmm MPV 12.4 fL Neutrophils 6.80 10 3/uL Lymphocytes 0.9 10 3/uL Monocytes 0.6 10 3/uL Eosinophils 0.1 10 3/uL Basophils 0.1 10 3/uL Neutrophil % 79.7 % Lymphocyte % 10.2 % Monocyte % 7.5 % Eosinophil % 1.4 % Basophils % 0.7 % NRBC % 0 % Problem List: 1. Well-differentiated hepatocellular carcinoma, confirmed by liver biopsy on 04/07/2020. 2. 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 3. He is having severe abdominal pain. 4. He has known liver cirrhosis, presumed alcohol related. 5. He was treated for hepatitis C in 2017. 6. He has history of chronic pancreatitis. His other medical illnesses include: 7. Hypertension. 8. GERD. 9. COPD. 10. He has permanent pacemaker for symptomatic bradycardia. 11. 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 He failed an initial trial of systemic therapy with cisplatin/gemcitabine chemotherapy. On 07/26/2020 he began a trial of 2nd line immunotherapy with nivolumab. His disease appears to be stable by restaging CT on 09/04/2020. He continue treatment with nivolumab at 2-week intervals. As of 10/24/2020 he completed his 7th cycle. His treatment subsequently was put on hold due to worsening symptoms including weakness/fatigue, shortness of breath, and cough. His restaging CT scans showed significant disease progression with new and increasing lymphadenopathy in the chest and in the abdomen/pelvis as well as disease progression in the liver and new lytic bone involvement in the spine. He has had further decline in his performance status. He CT findings were reviewed with the patient and his , we discussed the clinical implications. As he has failed both chemotherapy and immunotherapy, there really are not any effective treatment options to offer at this point. I feel the best course of action is to transition to symptomatic/supportive care. I discussed the possibility of hospice referral, which he declines, at least for now. He is going to continue with his current pain regimen which includes extended release morphine 100 mg every 12 hours together with immediate release morphine 30 to 60 mg up to 4 times a day. He is taking Marinol, which does help his appetite somewhat. He may want to come in for IV hydration, I did leave that option available to him. I will tentatively plan for a follow-up visit in 1 month. His overall prognosis, though, is very poor, and in the meantime, his will let me know if they want hospice. Signed By: Fredi Armas M.D. <<Signature on File>>
== END 2020-12-29 23:59 | disposition home or self-care (01) ==
LOC: ONCMED 08:21
PROVIDERS: PCP Registered Nurse; Visit Provider Internal Medicine Medical Oncology
DX: C22.1 Intrahepatic bile duct carcinoma (principal); D69.6 Thrombocytopenia, unspecified; R93.2 Abnormal findings on diagnostic imaging of liver and biliary tract; R10.84 Generalized abdominal pain; K76.0 Fatty (change of) liver, not elsewhere classified; K70.30 Alcoholic cirrhosis of liver without ascites; K86.0 Alcohol-induced chronic pancreatitis; I10 Essential (primary) hypertension; K21.9 Gastro-esophageal reflux disease without esophagitis; J44.9 Chronic obstructive pulmonary disease, unspecified; R00.1 Bradycardia, unspecified; Z95.0 Presence of cardiac pacemaker; Z94.7 Corneal transplant status; Z79.899 Other long term (current) drug therapy
CPT/HCPCS: 99215

== ENCOUNTER 2021-02-07 13:00 | Outpatient (RCR) | payer MEDICAID, SELFPAY ==
--- NOTE | 2021-02-07 12:18 | US_ITS ---
WS: [id number] ULTRASOUND-GUIDED THERAPEUTIC PARACENTESIS Procedure, risks, and complications have been explained to the patient. Consent is obtained. Utilizing aseptic technique and 1% buffered lidocaine, a small dermatome was made through which a 5 F rench Yueh catheter was inserted. Approximately 1500 ml of clear peritoneal fluid was obtained witho ut difficulty. No complications encountered. US/US paracentesis [id number] IMPRESSION: Uncomplicated paracentesis yielding 1500 ml of peritoneal fluid.
[2021-02-07 12:28] VITALS: BP 114/65; PULSE 75; RESP 30; TEMP 37; O2SAT 96
[2021-02-07 14:27] VITALS: BP 117/67; PULSE 73; RESP 22; O2SAT 97
== END 2021-02-28 23:59 | disposition home or self-care (01) ==
LOC: RAD 13:00
PROVIDERS: PCP Registered Nurse; Visit Provider Internal Medicine Medical Oncology
DX: C22.1 Intrahepatic bile duct carcinoma (principal)
CPT/HCPCS: 49083